=== PATIENT | female | born 1995 | race Caucasian/White ===

== ENCOUNTER 2018-02-04 10:17 | Emergency (ER) | payer SELFPAY ==
--- NOTE | 2018-02-04 10:50 | EDPHYS ---
Physician Documentation [facility] Name: Marion Alvarado Age: 22 yrs Sex: Female : 1995 Arrival Date: 02/04/2018 Time: 10:19 Bed 12 Private MD: None, None ED Physician Andrzej Lei HPI: 02/04 10:41 This 22 yrs old Female presents to ER via Ambulatory with complaints of cp Urinary Problem. 10:41 The patient presents with urinary symptoms, dysuria, frequency. Onset: The cp symptoms/episode began/occurred this morning. Associated signs and symptoms: Pertinent negatives: constipation, fever, flank pain, abdominal pain. Severity of symptoms: in the emergency department the symptoms are unchanged, despite home interventions. 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 - Social history:: Smoking status: Patient/guardian denies using tobacco. ROS: 10:42 Eyes: Negative for injury, pain, redness, and discharge. cp 10:42 Constitutional: Negative for body aches, chills, fever, poor PO intake. 10:42 ENT: Negative for drainage from ear(s), ear pain, sore throat, difficulty swallowing, difficulty handling secretions. 10:42 Cardiovascular: Negative for chest pain, edema, palpitations. 10:42 Respiratory: Negative for cough, shortness of breath, wheezing. 10:42 Abdomen/GI: Negative for abdominal pain, nausea, vomiting, and diarrhea, constipation, anorexia, black/tarry stool, rectal bleeding. 10:42 Back: Negative for pain at rest, pain with movement, radiated pain. 10:42 : Positive for urinary symptoms, urinary frequency, Negative for pelvic pain, flank pain. 10:42 Skin: Negative for cellulitis, rash. 10:42 Neuro: Negative for altered mental status, headache, weakness. 10:42 All other systems are negative. Exam: 10:44 Head/Face: Normocephalic, atraumatic. cp 10:44 Constitutional: The patient appears in no acute distress, alert, awake, non-toxic, well developed, well nourished. 10:44 Eyes: Periorbital structures: appear normal, Conjunctiva: normal, no exudate, no injection, Lids and lashes: appear normal, bilaterally. 10:44 ENT: External ear(s): are unremarkable, Nose: is normal, Mouth: is normal, Posterior pharynx: is normal, airway is patent, no erythema, no exudate. 10:44 Chest/axilla: Inspection: normal. 10:44 Cardiovascular: Rate: normal. 10:44 Respiratory: the patient does not display signs of respiratory distress, Respirations: normal, no use of accessory muscles, no retractions, no splinting, no tachypnea. 10:44 Abdomen/GI: Exam negative for discomfort, distension, guarding, Inspection: abdomen appears normal. 10:44 Back: CVA tenderness, is absent. 10:44 Skin: cellulitis, is not appreciated, no rash present. cp Vital Signs: 10:22 BP 119 / 75; Pulse 74; Resp 19; Temp 97.6(TE); Pulse Ox 100% on R/A; Weight 58.97 kg; la1 Height 4 ft. 10 in. (147.32 cm); 10:22 Body Mass Index 27.17 (58.97 kg, 147.32 cm) la1 MDM: 10:24 Patient medically screened. cp 10:48 Data reviewed: vital signs, nurses notes, lab test result(s), urinalysis, and as a cp result, I will discharge patient. 10:48 Counseling: I had a detailed discussion with the patient and/or guardian regarding: the cp historical points, exam findings, and any diagnostic results supporting the discharge/admit diagnosis, lab results, to return to the emergency department if symptoms worsen or persist or if there are any questions or concerns that arise at home. 02/04 10:35 Order name: Urine Microscopic Only la1 02/04 10:35 Order name: Urine Culture la1 02/04 10:24 Order name: Urine Dipstick-Ancillary (obtain specimen); Complete Time: 10:31 cp 02/04 10:24 Order name: Urine Test (obtain specimen); Complete Time: 10:31 cp 02/04 10:49 Order name: Urine Dipstick--Ancillary (enter results) ag 02/04 10:49 Order name: Urine --Ancillary (enter results) ag Administered Medications: No medications were administered Disposition: 02/04/18 10:49 Discharged to Home. Impression: Urinary tract infection, site not specified. - Condition is Stable. - Discharge Instructions: Urinary Tract Infection. - Prescriptions for Pyridium 200 mg Oral Tablet - take 1 tablet by ORAL route every 8 hours for 3 days; 6 tablet. Bactrim DS 800- 160 mg Oral Tablet - take 1 tablet by ORAL route every 12 hours for 7 days; 14 tablet. - Medication Reconciliation Form, Thank You Letter, Antibiotic Education, Prescription Opioid Use form. - Follow up: Private Physician; When: 2 - 3 days; Reason: symptoms continue. - Problem is new. - Symptoms are unchanged. Addendum: 02/06/2018 08:54 Co-signature as Attending Physician, nAdrzej Lei MD I agree with the assessment and c [place] plan of care. Signatures: Dispatcher [employer] EDAndrzej Pettit MD MD cha Williams, Irene RN RN iw Parish Rice RN RN la1 Andrzej Matt PA PA cp Corrections: (The following items were deleted from the chart) 02/04 10:55 10:49 02/04/2018 10:49 Discharged to Home. Impression: Urinary tract infection, site iw not specified. Condition is Stable. Forms are Medication Reconciliation Form, Thank You Letter, Antibiotic Education, Prescription Opioid Use. Follow up: Private Physician; When: 2 - 3 days; Reason: symptoms continue. Problem is new. Symptoms are unchanged. cp
--- NOTE | 2018-02-04 10:50 | ER ---
Nurse's Notes [facility] Name: Marion Alvarado Age: 22 yrs Sex: Female : 1995 Arrival Date: 02/04/2018 Time: 10:19 Bed 12 Private MD: None, None Diagnosis: Urinary tract infection, site not specified Presentation: 02/04 10:21 Presenting complaint: Patient states: burning with urination since 0300. Transition of la1 care: patient was not received from another setting of care. Onset of symptoms was February 04, 2018. Initial Sepsis Screen: Does the patient meet any 2 criteria? No. Patient's initial sepsis screen is negative. Does the patient have a suspected source of infection? No. Patient's initial sepsis screen is negative. Care prior to arrival: None. 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 - Social history:: Smoking status: Patient/guardian denies using tobacco. Screenin:23 Abuse screen: Denies threats or abuse. Nutritional screening: No deficits noted. la1 Tuberculosis screening: No symptoms or risk factors identified. Fall Risk None identified. Assessment: 10:22 Reassessment: Patient is alert, oriented x 3, equal unlabored respirations, skin la1 warm/dry/pink. General: Appears in no apparent distress. Behavior is calm, cooperative. Pain: Denies pain. : Reports burning with urination, Denies cramping discharge, vaginal bleeding, vaginal itching. Vital Signs: 10:22 BP 119 / 75; Pulse 74; Resp 19; Temp 97.6(TE); Pulse Ox 100% on R/A; Weight 58.97 kg; la1 Height 4 ft. 10 in. (147.32 cm); 10:22 Body Mass Index 27.17 (58.97 kg, 147.32 cm) la1 ED Course: 10:19 Patient arrived in ED. mr 10:20 None, None is Private Physician. mr 10:21 Triage completed. la1 10:22 Arm band placed on left wrist. la1 10:23 Andrzej Matt PA is PHCP. cp 10:23 Andrzej Lei MD is Attending Physician. cp 10:23 Call light in reach. la1 10:34 Parish Rice, RN is Primary Nurse. la1 10:45 Urine collected: clean catch specimen, cloudy, daron colored. jb1 10:55 No provider procedures requiring assistance completed. Patient did not have IV access iw during this emergency room visit. Administered Medications: No medications were administered Outcome: 10:49 Discharge ordered by MD. cp 10:54 Discharged to home ambulatory. iw 10:54 Condition: good 10:54 Discharge instructions given to patient, Instructed on discharge instructions, follow up and referral plans. medication usage, Demonstrated understanding of instructions, follow-up care, medications, Prescriptions given X 2. 10:55 Patient left the ED. iw Signatures: Pablo Del Toro jb1 Jennyfer Lin Irene RN RN iw Parish Rice RN RN la1 Andrzej Matt PA PA cp Corrections: (The following items were deleted from the chart) 10:55 10:20 General: Appears in no apparent distress. comfortable, iw iw
[2018-02-04 10:59] LABS: Urine Blood NEGATIVE (NEG); Urine Glucose TRACE (NEG); Urine Protein 1+ (NEG); Urine Specific Gravity 1.015 (1.005-1.030); Urine pH 7.5 (5.0-7.0)
[2018-02-04 11:00] VITALS: BP 119/75; TEMP 97.6; O2SAT 100
[2018-02-04 11:12] LABS: Urine Amorphous Sediment TRACE /HPF (NONE SEEN); Urine Bacteria <20 /HPF (<20); Urine Culture Reflex Order NOT NEEDED
== END 2018-02-04 10:55 | disposition home or self-care (01) ==
LOC: ER 10:17
DX: N39.0 Urinary tract infection, site not specified (principal)
CPT/HCPCS: 81003; 81015; 81025; 87077; 87086; 87088; 87186; 99283

== ENCOUNTER 2018-12-01 20:28 | Emergency (ER) | payer SELFPAY ==
[2018-12-01 23:32] LABS: Urine Bacteria <20 /HPF (<20); Urine Culture Reflex Order NOT NEEDED; Urine RBC NONE SEEN /HPF (NONE SEEN)
--- NOTE | 2018-12-02 00:18 | ER ---
Nurse's Notes [facility] Name: Marion Alvarado Age: 23 yrs Sex: Female : 1995 Arrival Date: 12/01/2018 Time: 20:31 Bed 8 Private MD: Diagnosis: Dysuria Presentation: 12/01 20:37 Presenting complaint: Patient states: "I think I have a bladder infection.". Transition jd3 of care: patient was not received from another setting of care. Onset of symptoms was November 28, 2018. Risk Assessment: Do you want to hurt yourself or someone else? Patient reports no desire to harm self or others. Initial Sepsis Screen: Does the patient meet any 2 criteria? No. Patient's initial sepsis screen is negative. Does the patient have a suspected source of infection? No. Patient's initial sepsis screen is negative. Care prior to arrival: None. 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 - Social history:: Smoking status: Patient/guardian denies using tobacco. - Ebola Screening: : Patient negative for fever greater than or equal to 101.5 degrees Fahrenheit, and additional compatible Ebola Virus Disease symptoms. Screenin:29 Abuse screen: Denies threats or abuse. Nutritional screening: No deficits noted. jd3 Tuberculosis screening: No symptoms or risk factors identified. Fall Risk Ambulatory Aid- None/Bed Rest/Nurse Assist (0 pts). Gait- Normal/Bed Rest/Wheelchair (0 pts) Mental Status- Oriented to own ability (0 pts). Total Whelan Fall Scale indicates No Risk (0-24 pts). Assessment: 22:28 General: Appears in no apparent distress. uncomfortable, Behavior is calm, cooperative, jd3 appropriate for age. Pain: Complains of pain in groin Quality of pain is described as burning. Neuro: Level of Consciousness is awake, alert, obeys commands, Oriented to person, place, time, situation, Appropriate for age. Cardiovascular: Capillary refill < 3 seconds Patient's skin is warm and dry. Respiratory: Airway is patent Respiratory effort is even, unlabored, Respiratory pattern is regular, symmetrical. GI: No signs and/or symptoms were reported involving the gastrointestinal system. : Reports burning with urination, urgency, urinary frequency. EENT: No signs and/or symptoms were reported regarding the EENT system. Derm: Skin is intact, Skin is dry, Skin is normal, Skin temperature is warm. Musculoskeletal: Circulation, motion, and sensation intact. Range of motion: intact in all extremities. 23:00 Reassessment: Patient appears in no apparent distress at this time. Patient and/or jd3 family updated on plan of care and expected duration. Pain level reassessed. Patient is alert, oriented x 3, equal unlabored respirations, skin warm/dry/pink. awaiting lab results. 12/02 00:08 Reassessment: Patient appears in no apparent distress at this time. Patient and/or jd3 family updated on plan of care and expected duration. Pain level reassessed. Patient is alert, oriented x 3, equal unlabored respirations, skin warm/dry/pink. 00:25 Reassessment: Patient appears in no apparent distress at this time. Patient and/or jd3 family updated on plan of care and expected duration. Pain level reassessed. Patient is alert, oriented x 3, equal unlabored respirations, skin warm/dry/pink. Vital Signs: 12/01 20:39 BP 115 / 78; Pulse 94; Resp 15 S; Temp 98.3(TE); Pulse Ox 99% on R/A; Weight 48.08 kg [facility] (R); Height 4 ft. 10 in. (147.32 cm) (R); Pain 4/10; 22:09 BP 112 / 69; Pulse 78; Resp 16 S; Pulse Ox 100% on R/A; [facility] 23:00 BP 107 / 67; Pulse 81; Resp 15 S; Pulse Ox 100% on R/A; [facility] 12/02 00:08 BP 109 / 65; Pulse 93; Resp 16 S; Pulse Ox 97% on R/A; [facility] 12/01 20:39 Body Mass Index 22.15 (48.08 kg, 147.32 cm) [facility] ED Course: 12/01 20:31 Patient arrived in ED. es 20:38 Triage completed. jd3 20:40 Arm band placed on. jd3 20:42 Rosaura Brooks [facility]-C [facility]. snw 20:42 Marvin Blanchard MD is Attending Physician. snw 21:39 Deanna Ac, RN is Primary Nurse. aj1 22:30 Patient has correct armband on for positive identification. Placed in gown. Bed in low jd3 position. Call light in reach. Side rails up X 1. 03 00:25 No provider procedures requiring assistance completed. Patient did not have IV access jd3 during this emergency room visit. Administered Medications: No medications were administered Outcome: 00:17 Discharge ordered by . snw 00:25 Discharged to home ambulatory. jd3 00:25 Condition: stable 00:25 Discharge instructions given to patient, Instructed on discharge instructions, follow up and referral plans. medication usage, Demonstrated understanding of instructions, follow-up care, medications, Prescriptions given X 2. 00:27 Patient left the ED. jd3 Signatures: Deanna Ac, RN RN aj1 Rosaura Brooks FNP-C FNP-Eliseow Kelsey Sebastian Jonathon, RN RN jd3 Corrections: (The following items were deleted from the chart) 12/01 23:00 23:00 Reassessment: Patient appears in no apparent distress at this time. Patient jd3 and/or family updated on plan of care and expected duration. Pain level reassessed. Patient is alert, oriented x 3, equal unlabored respirations, skin warm/dry/pink. jd3
--- NOTE | 2018-12-02 00:18 | EDPHYS ---
Physician Documentation [facility] Name: Marion Alvarado Age: 23 yrs Sex: Female : 1995 Arrival Date: 12/01/2018 Time: 20:31 Bed 8 Private MD: ED Physician Marvin Blanchard HPI: 12/01 23:21 This 23 yrs old Female presents to ER via Ambulatory with complaints of UTI. snw 23:21 The patient presents with urinary symptoms, dysuria, frequency. Onset: The snw symptoms/episode began/occurred suddenly, 4 day(s) ago, and became persistent. Associated signs and symptoms: Pertinent negatives: fever, vaginal bleeding, vomiting. Severity of symptoms: At their worst the symptoms were moderate. The patient has experienced similar episodes in the past. It is unknown whether or not the patient has recently seen a physician. 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 - Social history:: Smoking status: Patient/guardian denies using tobacco. - Ebola Screening: : Patient negative for fever greater than or equal to 101.5 degrees Fahrenheit, and additional compatible Ebola Virus Disease symptoms. ROS: 23:21 Constitutional: Negative for fever, chills, and weight loss, Eyes: Negative for injury, snw pain, redness, and discharge, ENT: Negative for injury, pain, and discharge, Neck: Negative for injury, pain, and swelling, Cardiovascular: Negative for chest pain, palpitations, and edema, Respiratory: Negative for shortness of breath, cough, wheezing, and pleuritic chest pain, Abdomen/GI: Negative for abdominal pain, nausea, vomiting, diarrhea, and constipation, Back: Negative for injury and pain, MS/Extremity: Negative for injury and deformity, Skin: Negative for injury, rash, and discoloration, Neuro: Negative for headache, weakness, numbness, tingling, and seizure. 23:21 : Positive for urinary symptoms, urinary frequency, burning with urination, Negative for vaginal bleeding, vaginal discharge. Exam: 23:21 Constitutional: This is a well developed, well nourished patient who is awake, alert, snw and in no acute distress. Head/Face: Normocephalic, atraumatic. Eyes: Pupils equal round and reactive to light, extra-ocular motions intact. Lids and lashes normal. Conjunctiva and sclera are non-icteric and not injected. Cornea within normal limits. Periorbital areas with no swelling, redness, or edema. ENT: Nares patent. No nasal discharge, no septal abnormalities noted. Tympanic membranes are normal and external auditory canals are clear. Oropharynx with no redness, swelling, or masses, exudates, or evidence of obstruction, uvula midline. Mucous membranes moist. Neck: Trachea midline, no thyromegaly or masses palpated, and no cervical lymphadenopathy. Supple, full range of motion without nuchal rigidity, or vertebral point tenderness. No Meningismus. Chest/axilla: Normal chest wall appearance and motion. Nontender with no deformity. No lesions are appreciated. Cardiovascular: Regular rate and rhythm with a normal S1 and S2. No gallops, murmurs, or rubs. Normal PMI, no JVD. No pulse deficits. Respiratory: Lungs have equal breath sounds bilaterally, clear to auscultation and percussion. No rales, rhonchi or wheezes noted. No increased work of breathing, no retractions or nasal flaring. Abdomen/GI: Soft, non-tender, with normal bowel sounds. No distension or tympany. No guarding or rebound. No evidence of tenderness throughout. Back: No spinal tenderness. No costovertebral tenderness. Full range of motion. Skin: Warm, dry with normal turgor. Normal color with no rashes, no lesions, and no evidence of cellulitis. MS/ Extremity: Pulses equal, no cyanosis. Neurovascular intact. Full, normal range of motion. Neuro: Awake and alert, GCS 15, oriented to person, place, time, and situation. Cranial nerves II-XII grossly intact. Motor strength 5/5 in all extremities. Sensory grossly intact. Cerebellar exam normal. Normal gait. Psych: Awake, alert, with orientation to person, place and time. Behavior, mood, and affect are within normal limits. Vital Signs: 20:39 BP 115 / 78; Pulse 94; Resp 15 S; Temp 98.3(TE); Pulse Ox 99% on R/A; Weight 48.08 kg jd3 (R); Height 4 ft. 10 in. (147.32 cm) (R); Pain 4/10; 22:09 BP 112 / 69; Pulse 78; Resp 16 S; Pulse Ox 100% on R/A; jd3 23:00 BP 107 / 67; Pulse 81; Resp 15 S; Pulse Ox 100% on R/A; jd3 12/02 00:08 BP 109 / 65; Pulse 93; Resp 16 S; Pulse Ox 97% on R/A; jd3 12/01 20:39 Body Mass Index 22.15 (48.08 kg, 147.32 cm) j MDM: 12/01 22:23 Patient medically screened. snw 12/02 00:19 Data reviewed: vital signs, nurses notes. Data interpreted: Pulse oximetry: on room air snw is 97 %. Interpretation: normal. Counseling: I had a detailed discussion with the patient and/or guardian regarding: the historical points, exam findings, and any diagnostic results supporting the discharge/admit diagnosis, lab results, the need for outpatient follow up, to return to the emergency department if symptoms worsen or persist or if there are any questions or concerns that arise at home. Special discussion: Based on the patient's Hx, exam, and Dx evaluation, there is no indication for emergent surgery or inpatient Tx. It is understood by the patient/guardian that if the Sx's persist or worsen they need to return immediately for re-evaluation. Based on the history and exam findings, there is no indication for further emergent testing or inpatient evaluation. I discussed with the patient/guardian the need to see the OB Gyne specialist for further evaluation of the symptoms. I discussed with the patient/guardian the need to see the primary care provider for further evaluation of the symptoms. 12/01 22:05 Order name: Urine Culture snw 12/01 22:05 Order name: Urine Microscopic Only; Complete Time: 23:35 snw 12/01 22:05 Order name: Urine Test (obtain specimen); Complete Time: 22:23 snw 12/01 22:05 Order name: Urine Dipstick-Ancillary (obtain specimen); Complete Time: 22:23 snw 12/01 22:16 Order name: Urine Dipstick--Ancillary (enter results); Complete Time: 01:58 mw2 12/01 22:16 Order name: Urine --Ancillary (enter results); Complete Time: 01:58 mw2 Administered Medications: No medications were administered Disposition: 03:56 Co-signature as Attending Physician, Marvin Blanchard MD. Disposition: 12/02/18 00:17 Discharged to Home. Impression: Dysuria. - Condition is Stable. - Discharge Instructions: Dysuria, How to Take a Sitz Bath. - Prescriptions for Macrobid 100 mg Oral Capsule - take 1 capsule by ORAL route every 12 hours for 10 days; 20 capsule. Diclofenac Sodium 75 mg Oral Tablet Sustained Release - take 1 tablet by ORAL route 2 times per day; 30 tablet. - Medication Reconciliation Form, Thank You Letter, Antibiotic Education, Prescription Opioid Use form. - Follow up: Private Physician; When: 2 - 3 days; Reason: Recheck today's complaints, Continuance of care, Re-evaluation by your physician. Follow up: Emergency Department; When: As needed; Reason: Worsening of condition. - Notes: Macrobid only to be filled for fever, blood in the urine, worsening symptoms Signatures: Dispatcher [employer] EDMS Rosaura Brooks, SAP TREASURY CONSULTANT-C SAP TREASURY CONSULTANT-Csnw Marvin Blanchard MD MD Hugh Mcconnell RN RN jd3 Corrections: (The following items were deleted from the chart) 00:27 00:17 12/02/2018 00:17 Discharged to Home. Impression: Dysuria. Condition is Stable. jd3 Forms are Medication Reconciliation Form, Thank You Letter, Antibiotic Education, Prescription Opioid Use. Follow up: Private Physician; When: 2 - 3 days; Reason: Recheck today's complaints, Continuance of care, Re-evaluation by your physician. Follow up: Emergency Department; When: As needed; Reason: Worsening of condition. snw
[2018-12-02 00:21] LABS: Urine Blood NEGATIVE (NEG); Urine Glucose NEGATIVE (NEG); Urine Protein NEGATIVE (NEG)
[2018-12-02 01:00] VITALS: TEMP 98.3
[2018-12-02 01:03] VITALS: BP 109/65; O2SAT 97
== END 2018-12-02 00:27 | disposition home or self-care (01) ==
LOC: ER 20:28
DX: R30.0 Dysuria (principal)
CPT/HCPCS: 81003; 81015; 81025; 87086; 87088; 99282

== ENCOUNTER 2019-03-15 01:23 | Emergency (ER) | payer SELFPAY ==
--- NOTE | 2019-03-15 02:01 | ER ---
Nurse's Notes [facility] Name: Marion Alvarado Age: 23 yrs Sex: Female : 1995 Arrival Date: 03/15/2019 Time: 01:27 Bed 5 Private MD: Diagnosis: Urinary tract infection, site not specified;Dysuria Presentation: 03/15 01:43 Presenting complaint: Patient states: burning with urination and increased frequency ak1 since 209903/14/19. pt stated she took OTC AZO at 2230 with no relief. Transition of care: patient was not received from another setting of care. Onset of symptoms was March 15, 2019. Risk Assessment: Do you want to hurt yourself or someone else? Patient reports no desire to harm self or others. Initial Sepsis Screen: Does the patient meet any 2 criteria? No. Patient's initial sepsis screen is negative. Does the patient have a suspected source of infection? No. Patient's initial sepsis screen is negative. Care prior to arrival: None. 01:43 Acuity: SHAW 4 ak1 01:43 Method Of Arrival: Ambulatory ak1 Triage Assessment: 01:45 General: Appears in no apparent distress. Behavior is calm, cooperative. Pain: ak1 Complains of pain in pelvis. EENT: No signs and/or symptoms were reported regarding the EENT system. Neuro: No deficits noted. Cardiovascular: No deficits noted. Respiratory: No deficits noted. GI: No signs and/or symptoms were reported involving the gastrointestinal system. : Reports burning with urination, since 209903/14/19 urinary frequency, since 209903/14/19. Derm: No signs and/or symptoms reported regarding the dermatologic system. Musculoskeletal: No signs and/or symptoms reported regarding the musculoskeletal system. 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 - Social history:: Smoking status: Patient/guardian denies using tobacco. - Ebola Screening: : No symptoms or risks identified at this time. - Family history:: not pertinent. Screenin:47 Abuse screen: Denies threats or abuse. Denies injuries from another. Nutritional ak1 screening: No deficits noted. Tuberculosis screening: No symptoms or risk factors identified. Fall Risk None identified. Assessment: 01:46 Reassessment: Patient appears in no apparent distress at this time. No changes from ak1 previously documented assessment. Patient and/or family updated on plan of care and expected duration. Pain level reassessed. Patient is alert, oriented x 3, equal unlabored respirations, skin warm/dry/pink. see triage assessment. General: Appears in no apparent distress. Vital Signs: 01:43 BP 126 / 95; Pulse 87; Resp 16; Temp 97.6(O); Pulse Ox 98% on R/A; Weight 46.72 kg (R); ak1 Height 4 ft. 10 in. (147.32 cm) (R); Pain 9/10; 02:04 BP 119 / 81; Pulse 81; Resp 16; Temp 97.6; Pulse Ox 100% on R/A; bb 01:43 Body Mass Index 21.53 (46.72 kg, 147.32 cm) ak1 ED Course: 01:27 Patient arrived in ED. ds1 01:28 Andrzej Lei MD is Attending Physician. marilia 01:42 Juany Ann, ARTUR is Primary Nurse. ak1 01:44 Triage completed. ak1 01:45 Arm band placed on Patient placed in an exam room, on a stretcher, Patient notified of ak1 wait time. 01:46 Patient has correct armband on for positive identification. Bed in low position. Call ak1 light in reach. Side rails up X 1. Pulse ox on. NIBP on. 01:46 Urine collected: clean catch specimen. ak1 02:12 No provider procedures requiring assistance completed. Patient did not have IV access ak1 during this emergency room visit. 02:33 Urine Culture Sent. ak1 Administered Medications: 02:05 Drug: Rocephin (cefTRIAXone) 1 grams Route: IM; Site: right gluteus; ak1 02:32 Follow up: Response: No adverse reaction ak1 02:12 Drug: Cipro 500 mg Route: PO; ak1 02:15 Follow up: Response: No adverse reaction; Medication administered at discharge. ak1 02:12 Drug: Pyridium 200 mg Route: PO; ak1 02:15 Follow up: Response: No adverse reaction; Medication administered at discharge. ak1 Outcome: 02:01 Discharge ordered by . marilia 02:13 Condition: good ak1 02:13 Discharge instructions given to patient, Instructed on discharge instructions, follow ak1 up and referral plans. no drinking with medication, no driving heavy equipment, medication usage, safe sex practices, control, Demonstrated understanding of instructions, follow-up care, medications, Prescriptions given X 3. 02:32 Discharged to home ambulatory, with family. ak1 02:33 Patient left the ED. ak1 Addendum: 03/19/2019 08:15 Addendum: Culture Results: Positive urine culture. No further action required. Bacteria s s sensitive to prescribed antibiotic. Signatures: Andrzej Lei MD MD cha Sanford, Demi ds1 Hafsa Weems, Cynthia Arredondo RN, RN RN ss Krenek, Amber, RN RN ak1
--- NOTE | 2019-03-15 02:02 | EDPHYS ---
Physician Documentation [facility] Name: Marion Alvarado Age: 23 yrs Sex: Female : 1995 Arrival Date: 03/15/2019 Time: 01:27 Bed 5 Private MD: ED Physician Andrzej Lei HPI: 03/15 01:58 This 23 yrs old Female presents to ER via Ambulatory with complaints of Pain marilia With Urination. 01:58 The patient presents with urinary symptoms, dysuria, frequency, hematuria. Onset: The marilia symptoms/episode began/occurred 2 day(s) ago. Modifying factors: The symptoms are alleviated by nothing, the symptoms are aggravated by nothing. Associated signs and symptoms: The patient has no apparent associated signs or symptoms. Severity of symptoms: At their worst the symptoms were mild, in the emergency department the symptoms are unchanged. 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 - Social history:: Smoking status: Patient/guardian denies using tobacco. - Ebola Screening: : No symptoms or risks identified at this time. - Family history:: not pertinent. ROS: 01:58 Constitutional: Negative for fever, chills, and weight loss, Eyes: Negative for injury, marilia pain, redness, and discharge, ENT: Negative for injury, pain, and discharge, Neck: Negative for injury, pain, and swelling, Cardiovascular: Negative for chest pain, palpitations, and edema, Respiratory: Negative for shortness of breath, cough, wheezing, and pleuritic chest pain, Back: Negative for injury and pain, : Negative for injury, bleeding, discharge, and swelling, MS/Extremity: Negative for injury and deformity, Skin: Negative for injury, rash, and discoloration, Neuro: Negative for headache, weakness, numbness, tingling, and seizure, Psych: Negative for depression, anxiety, suicide ideation, homicidal ideation, and hallucinations, Allergy/Immunology: Negative for hives, rash, and allergies, Endocrine: Negative for neck swelling, polydipsia, polyuria, polyphagia, and marked weight changes. 01:58 Abdomen/GI: Positive for abdominal pain, of the suprapubic area. Exam: 01:58 Constitutional: This is a well developed, well nourished patient who is awake, alert, marilia and in no acute distress. Head/Face: Normocephalic, atraumatic. Eyes: Pupils equal round and reactive to light, extra-ocular motions intact. Lids and lashes normal. Conjunctiva and sclera are non-icteric and not injected. Cornea within normal limits. Periorbital areas with no swelling, redness, or edema. ENT: Nares patent. No nasal discharge, no septal abnormalities noted. Tympanic membranes are normal and external auditory canals are clear. Oropharynx with no redness, swelling, or masses, exudates, or evidence of obstruction, uvula midline. Mucous membranes moist. Neck: Trachea midline, no thyromegaly or masses palpated, and no cervical lymphadenopathy. Supple, full range of motion without nuchal rigidity, or vertebral point tenderness. No Meningismus. Chest/axilla: Normal chest wall appearance and motion. Nontender with no deformity. No lesions are appreciated. Cardiovascular: Regular rate and rhythm with a normal S1 and S2. No gallops, murmurs, or rubs. Normal PMI, no JVD. No pulse deficits. Respiratory: Lungs have equal breath sounds bilaterally, clear to auscultation and percussion. No rales, rhonchi or wheezes noted. No increased work of breathing, no retractions or nasal flaring. Back: No spinal tenderness. No costovertebral tenderness. Full range of motion. Skin: Warm, dry with normal turgor. Normal color with no rashes, no lesions, and no evidence of cellulitis. MS/ Extremity: Pulses equal, no cyanosis. Neurovascular intact. Full, normal range of motion. Neuro: Awake and alert, GCS 15, oriented to person, place, time, and situation. Cranial nerves II-XII grossly intact. Motor strength 5/5 in all extremities. Sensory grossly intact. Cerebellar exam normal. Normal gait. 01:58 Abdomen/GI: Inspection: abdomen appears normal, Bowel sounds: normal, Palpation: mild abdominal tenderness, in the suprapubic area, Liver: no appreciated palpable abnormalities, Hernia: not appreciated. Vital Signs: 01:43 BP 126 / 95; Pulse 87; Resp 16; Temp 97.6(O); Pulse Ox 98% on R/A; Weight 46.72 kg (R); ak1 Height 4 ft. 10 in. (147.32 cm) (R); Pain 9/10; 02:04 BP 119 / 81; Pulse 81; Resp 16; Temp 97.6; Pulse Ox 100% on R/A; bb 01:43 Body Mass Index 21.53 (46.72 kg, 147.32 cm) [facility] MDM: 01:39 Patient medically screened. [facility] 01:58 Data reviewed: vital signs, nurses notes, lab test result(s), urinalysis. [facility] 03/15 01:39 Order name: Urine Culture [facility] 03/15 01:39 Order name: Urine Dipstick-Ancillary (obtain specimen); Complete Time: 01:43 [facility] 03/15 01:39 Order name: Urine Test (obtain specimen); Complete Time: 01:43 [facility] Administered Medications: 02:05 Drug: Rocephin (cefTRIAXone) 1 grams Route: IM; Site: right gluteus; ak1 02:32 Follow up: Response: No adverse reaction ak1 02:12 Drug: Cipro 500 mg Route: PO; ak1 02:15 Follow up: Response: No adverse reaction; Medication administered at discharge. ak1 02:12 Drug: Pyridium 200 mg Route: PO; ak1 02:15 Follow up: Response: No adverse reaction; Medication administered at discharge. ut1 Disposition: 03/15/19 02:01 Discharged to Home. Impression: Urinary tract infection, site not specified, Dysuria. - Condition is Stable. - Discharge Instructions: Dysuria, Urinary Tract Infection, Adult, Urinary Tract Infection, Adult, [id number]. - Prescriptions for Pyridium 200 mg Oral Tablet - take 1 tablet by ORAL route every 8 hours for 3 days; 9 tablet. Cipro 500 mg Oral Tablet - take 1 tablet by ORAL route every 12 hours for 7 days; 14 tablet. Bactrim DS 800- 160 mg Oral Tablet - take 1 tablet by ORAL route every 12 hours for 3 days; 6 tablet. - Medication Reconciliation Form, Thank You Letter, Antibiotic Education, Prescription Opioid Use form. - Follow up: Private Physician; When: 2 - 3 days; Reason: Recheck today's complaints, Continuance of care, Re-evaluation by your physician. - Problem is new. - Symptoms have improved. Signatures: Dispatcher [employer] EDAndrzej Pettit MD MD cha Krenek, Amber, RN RN ak1 Corrections: (The following items were deleted from the chart) 02:33 02:01 03/15/2019 02:01 Discharged to Home. Impression: Urinary tract infection, site ak1 not specified; Dysuria. Condition is Stable. Forms are Medication Reconciliation Form, Thank You Letter, Antibiotic Education, Prescription Opioid Use. Follow up: Private Physician; When: 2 - 3 days; Reason: Recheck today's complaints, Continuance of care, Re-evaluation by your physician. Problem is new. Symptoms have improved. marilia
[2019-03-15] MEDS ORDERED: CEFTRIAXONE 1000 MG/VIAL ONE (02:22)
[2019-03-15] MEDS ORDERED: PHENAZOPYRIDINE 100MG TAB PO ONE (02:22)
[2019-03-15] MEDS ORDERED: CIPROFLOXACIN HCL 500 MG TAB ONE (02:22)
[2019-03-15] MEDS ORDERED: WATER FOR INJ,STERILE 10 ML ONE (02:23)
[2019-03-15 03:29] VITALS: TEMP 97.6
[2019-03-15 03:32] VITALS: BP 119/81; O2SAT 100
== END 2019-03-15 02:33 | disposition home or self-care (01) ==
LOC: ER 01:23
DX: N39.0 Urinary tract infection, site not specified (principal)
CPT/HCPCS: 87077; 87086; 87088; 87186; 96372; 99284

== ENCOUNTER 2020-04-15 10:35 | Emergency (ER) | payer SELFPAY ==
[2020-04-15 12:42] LABS: Urine Blood NEGATIVE (NEG); Urine Glucose NEGATIVE (NEG); Urine Protein NEGATIVE (NEG); Urine Specific Gravity 1.015 (1.005-1.030)
--- OUTSIDE RECORDS SUMMARY | 2020-04-15 12:56 | XMS REPORT | Continuity of Care Document ---
:1995 Author Organization [facility] t Address [address] [place] [address] Dr. Shetty [address] [place] [id number] Care Team Providers Name Role Phone Unavailable Unavailable Unavailable Problems This patient has no known problems. Allergies, Adverse Reactions, Alerts This patient has no known allergies or adverse reactions. Medications This patient has no known medications. Procedures This patient has no known procedures. Results This patient has no known results.
--- NOTE | 2020-04-15 12:58 | ER ---
Nurse's Notes [facility] Name: Marion Alvarado Age: 24 yrs Sex: Female : 1995 Arrival Date: 04/15/2020 Time: 10:37 Bed 14 Private MD: Diagnosis: Urinary tract infection, site not specified Presentation: 04/15 11:22 Chief complaint: Patient states: Burning with urination, urinary frequency and urgency ca1 at 0800 today. Denies fever. Coronavirus screen: Patient denies a cough. Patient denies shortness of breath or difficulty breathing. Patient denies measured and/or subjective temperature greater than 100.4F prior to today's visit. Patient denies travel on a cruise ship or to a country the [facility] currently lists as an affected area. Patient denies contact with known and/or suspected case of COVID-19. Proceed with normal triage. Ebola Screen: Patient negative for fever greater than or equal to 101.5 degrees Fahrenheit, and additional compatible Ebola Virus Disease symptoms Patient denies exposure to infectious person. Patient denies travel to an Ebola-affected area in the 21 days before illness onset. No symptoms or risks identified at this time. Initial Sepsis Screen: Does the patient meet any 2 criteria? No. Patient's initial sepsis screen is negative. Does the patient have a suspected source of infection? No. Patient's initial sepsis screen is negative. Risk Assessment: Do you want to hurt yourself or someone else? Patient reports no desire to harm self or others. Onset of symptoms was April 15, 2020. 11:22 Method Of Arrival: Ambulatory ca1 11:22 Acuity: SHAW 4 ca1 Triage Assessment: 12:14 General: Appears uncomfortable, Behavior is calm, cooperative. Pain: Complains of pain ks7 in pelvis Pain currently is 8 out of 10 on a pain scale. Quality of pain is described as burning, sharp. 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 - Social history:: Smoking status: Patient denies any tobacco usage or history of. Screenin:15 Abuse screen: Denies threats or abuse. Nutritional screening: No deficits noted. ks7 Tuberculosis screening: No symptoms or risk factors identified. Fall Risk None identified. Assessment: 12:15 General: pt with hx of frequent uti, c/o burning pain with urination, thinks she has a ks7 uti. states Macrobid does not work for her uti.. : Reports burning with urination, pain urgency, urinary frequency. 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 ks7 Vital Signs: 11:22 BP 129 / 91; Pulse 77; Resp 15 S; Temp 97(TE); Pulse Ox 100% on R/A; Weight 46.72 kg ca1 (R); Height 4 ft. 11 in. (149.86 cm) (R); 12:14 Pulse 82; Resp 16; Temp 98.6(TE); Pulse Ox 100% ; Pain 8/10; ks7 13:12 BP 115 / 80; Pulse 80; Resp 16; Temp 98.6(TE); Pulse Ox 100% ; Pain 7/10; ks7 13:25 Temp 98.6(TE); Pulse Ox 100% ; Pain 7/10; ks7 11:22 Body Mass Index 20.80 (46.72 kg, 149.86 cm) ca1 ED Course: 10:37 Patient arrived in ED. ag5 11:01 Claudia Martin F[facility]-C [facility] kb 11:01 Moreno Carson MD is Attending Physician. kb 11:23 Triage completed. ca1 11:24 Arm band placed on right wrist. ca1 12:10 Gertrudis Clay, ARTUR is Primary Nurse. ks7 12:15 Nurse Practitioner and/or Physician Small Engine Technician to see patient. at bedside. ks7 12:15 Patient has correct armband on for positive identification. Bed in low position. Call ks7 light in reach. Side rails up X2. 12:15 No provider procedures requiring assistance completed. Patient did not have IV access ks7 during this emergency room visit. 12:28 No apparent distress. pt ambulated to bathroom independently. ks7 Administered Medications: 13:16 CANCELLED (pt states macrobid does not work for her, has frequent UTI): Macrobid 100 mg ks7 PO once; administer with food 13:21 Drug: Bactrim (160 mg-800 mg (DS) 1 tablet Route: PO; ks7 13:25 Follow up: Temp 98.6 Temporal; Pulse Ox 100% ; Pain 04/04 Adult ks7 Outcome: 12:58 Discharge ordered by . diego 13:26 Discharged to home ambulatory. ks7 13:26 Condition: good 13:26 Discharge instructions given to patient, Instructed on discharge instructions, medication usage, Demonstrated understanding of instructions, medications, Prescriptions given X 1. 13:28 Patient left the ED. ks7 Addendum: 04/19/2020 07:58 Addendum: Culture Results: Positive urine culture. No further action required. Bacteria e b sensitive to prescribed antibiotic. Signatures: Claudia Martin, PUBLIC SAFETY TELECOMMUNICATOR-C PUBLIC SAFETY TELECOMMUNICATOR-Aneta Villarreal Cheryl, RN RN ca1 Armando Carlton 5 Gertrudis Clay RN RN ks7
--- NOTE | 2020-04-15 12:58 | EDPHYS ---
Physician Documentation [facility] Name: Marion Alvarado Age: 24 yrs Sex: Female : 1995 Arrival Date: 04/15/2020 Time: 10:37 Bed 14 Private MD: ED Physician Moreno Carson HPI: 04/15 13:25 This 24 yrs old Female presents to ER via Ambulatory with complaints of kb Possible UTI. 13:25 The patient presents with urinary symptoms, dysuria, frequency, urgency. Onset: The kb symptoms/episode began/occurred this morning. Modifying factors: The symptoms are alleviated by nothing, the symptoms are aggravated by urinating. Associated signs and symptoms: Pertinent positives: dysuria, urinary frequency, Pertinent negatives: fever. Severity of symptoms: At their worst the symptoms were moderate, in the emergency department the symptoms are unchanged. The patient has experienced similar episodes in the past. The patient has not recently seen a physician. 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 - Social history:: Smoking status: Patient denies any tobacco usage or history of. ROS: 13:23 Constitutional: Negative for fever, chills, and weight loss, Cardiovascular: Negative kb for chest pain, palpitations, and edema, Respiratory: Negative for shortness of breath, cough, wheezing, and pleuritic chest pain, Abdomen/GI: Negative for abdominal pain, nausea, vomiting, diarrhea, and constipation, Back: Negative for injury and pain, MS/Extremity: Negative for injury and deformity, Skin: Negative for injury, rash, and discoloration, Neuro: Negative for headache, weakness, numbness, tingling, and seizure. 13:23 : Positive for urinary symptoms, urinary frequency, small amounts, burning with urination. Exam: 13:23 Constitutional: This is a well developed, well nourished patient who is awake, alert, kb and in no acute distress. Head/Face: Normocephalic, atraumatic. Chest/axilla: Normal chest wall appearance and motion. Nontender with no deformity. No lesions are appreciated. Cardiovascular: Regular rate and rhythm with a normal S1 and S2. No gallops, murmurs, or rubs. Normal PMI, no JVD. No pulse deficits. Respiratory: Lungs have equal breath sounds bilaterally, clear to auscultation and percussion. No rales, rhonchi or wheezes noted. No increased work of breathing, no retractions or nasal flaring. Abdomen/GI: Soft, non-tender, with normal bowel sounds. No distension or tympany. No guarding or rebound. No evidence of tenderness throughout. Back: No spinal tenderness. No costovertebral tenderness. Full range of motion. Skin: Warm, dry with normal turgor. Normal color with no rashes, no lesions, and no evidence of cellulitis. MS/ Extremity: Pulses equal, no cyanosis. Neurovascular intact. Full, normal range of motion. Neuro: Awake and alert, GCS 15, oriented to person, place, time, and situation. Cranial nerves II-XII grossly intact. Motor strength 5/5 in all extremities. Sensory grossly intact. Cerebellar exam normal. Normal gait. Vital Signs: 11:22 BP 129 / 91; Pulse 77; Resp 15 S; Temp 97(TE); Pulse Ox 100% on R/A; Weight 46.72 kg ca1 (R); Height 4 ft. 11 in. (149.86 cm) (R); 12:14 Pulse 82; Resp 16; Temp 98.6(TE); Pulse Ox 100% ; Pain 8/10; ks7 13:12 BP 115 / 80; Pulse 80; Resp 16; Temp 98.6(TE); Pulse Ox 100% ; Pain 7/10; ks7 13:25 Temp 98.6(TE); Pulse Ox 100% ; Pain 7/10; ks7 11:22 Body Mass Index 20.80 (46.72 kg, 149.86 cm) ca1 MDM: 12:05 Patient medically screened. kb 13:15 Data reviewed: vital signs, nurses notes. Data interpreted: Pulse oximetry: on room air kb is 100 %. Interpretation: normal. Counseling: I had a detailed discussion with the patient and/or guardian regarding: the historical points, exam findings, and any diagnostic results supporting the discharge/admit diagnosis, lab results, the need for outpatient follow up, a family practitioner, to return to the emergency department if symptoms worsen or persist or if there are any questions or concerns that arise at home. ED course: Pt reports macrobid does not work for her and requests something else. 04/15 11:02 Order name: Urine Microscopic Only kb 04/15 12:29 Order name: Urine Dipstick--Ancillary (enter results); Complete Time: 12:57 aa5 04/15 11:02 Order name: Urine Test (obtain specimen); Complete Time: 12:54 kb 04/15 12:29 Order name: Urine --Ancillary (enter results); Complete Time: 12:57 aa5 04/15 11:02 Order name: Urine Dipstick-Ancillary (obtain specimen); Complete Time: 12:54 kb Administered Medications: 13:16 CANCELLED (pt states macrobid does not work for her, has frequent UTI): Macrobid 100 mg ks7 PO once; administer with food 13:21 Drug: Bactrim (160 mg-800 mg (DS) 1 tablet Route: PO; ks7 13:25 Follow up: Temp 98.6 Temporal; Pulse Ox 100% ; Pain 7/10 Adult ks7 Disposition: 13:29 Co-signature as Attending Physician, Moreno Carson MD. rn Disposition: 04/15/20 12:58 Discharged to Home. Impression: Urinary tract infection, site not specified. - Condition is Stable. - Discharge Instructions: Urinary Tract Infection, Adult, [id number]. - Prescriptions for Bactrim DS 800- 160 mg Oral Tablet - take 1 tablet by ORAL route every 12 hours for 10 days; 20 tablet. - Medication Reconciliation Form, Thank You Letter, Antibiotic Education, Prescription Opioid Use form. - Follow up: Emergency Department; When: As needed; Reason: Worsening of condition. Follow up: Private Physician; When: 2 - 3 days; Reason: Recheck today's complaints, Continuance of care, Re-evaluation by your physician. Signatures: Dispatcher [employer] EDMS Claudia Martin, HEATHER PARKS-Moreno Stephens MD MD rn Acob, Mer RN Gertrudis Coe RN RN ks7 Corrections: (The following items were deleted from the chart) 13:16 12:59 Macrobid 100 mg PO once; administer with food ordered. kb ks7 13:28 12:58 04/15/2020 12:58 Discharged to Home. Impression: Urinary tract infection, site ks7 not specified. Condition is Stable. Forms are Medication Reconciliation Form, Thank You Letter, Antibiotic Education, Prescription Opioid Use. Follow up: Emergency Department; When: As needed; Reason: Worsening of condition. Follow up: Private Physician; When: 2 - 3 days; Reason: Recheck today's complaints, Continuance of care, Re-evaluation by your physician. kb
[2020-04-15] MEDS ORDERED: SMZ./TMP. 800/160 MG TABLET ONE (13:29)
[2020-04-15 15:58] LABS: Urine Bacteria <20 /HPF (<20); Urine RBC <5 /HPF (NONE SEEN)
[2020-04-15 15:59] LABS: Urine Culture Reflex Order REFLEXED
== END 2020-04-15 13:28 | disposition home or self-care (01) ==
LOC: ER 10:35
DX: N39.0 Urinary tract infection, site not specified (principal)
CPT/HCPCS: 81003; 81015; 81025; 87077; 87086; 87088; 87186; 99283

== ENCOUNTER 2020-06-30 19:21 | Emergency (ER) | payer SELFPAY ==
--- NOTE | 2020-06-30 20:32 | ER ---
Nurse's Notes [facility] Name: Marion Alvarado Age: 24 yrs Sex: Female : 1995 Arrival Date: 06/30/2020 Time: 19:24 Bed 20 Private MD: Diagnosis: Urinary tract infection, site not specified Presentation: 06/30 19:28 Chief complaint: Patient states: Painful urination for 1 day. No fever. No N/V/D. ll1 Coronavirus screen: Client denies travel out of the [place] in the last 14 days. At this time, the client does not indicate any symptoms associated with coronavirus-19. Ebola Screen: Patient denies travel to an Ebola-affected area in the 21 days before illness onset. Initial Sepsis Screen: Does the patient meet any 2 criteria? No. Patient's initial sepsis screen is negative. Does the patient have a suspected source of infection? Yes: Dysuria/Frequency/Urgency/UTI. Risk Assessment: Do you want to hurt yourself or someone else? Patient reports no desire to harm self or others. Onset of symptoms was June 30, 2020. 19:28 Method Of Arrival: Ambulatory [facility] 19:28 Acuity: SHAW 4 ll1 Historical: - Allergies: 19:29 No Known Allergies; ll1 - PMHx: 19:29 UTI; ll1 - PSHx: 19:29 None; ll1 - Immunization history:: Flu vaccine is not up to date. - Social history:: Smoking status: Patient denies any tobacco usage or history of. Screenin:14 Abuse screen: Denies threats or abuse. Nutritional screening: No deficits noted. ea Tuberculosis screening: No symptoms or risk factors identified. Fall Risk None identified. Assessment: 20:13 General: Appears in no apparent distress. Behavior is calm, cooperative, appropriate ea for age. Pain: Complains of pain in pelvis Quality of pain is described as burning, burning with urination. Neuro: Level of Consciousness is awake, alert, obeys commands, Oriented to person, place, time. Cardiovascular: Patient's skin is warm and dry. Respiratory: Airway is patent Respiratory effort is even, unlabored, Respiratory pattern is regular, symmetrical. Derm: Skin is pink, warm \T\ dry. 20:38 Reassessment: Patient is alert, oriented x 3, equal unlabored respirations, skin bb warm/dry/pink. pt verbalized understanding of and agrees to plan of care discharge instructions given pt ambulated with steady gait to exit. Vital Signs: 19:28 BP 114 / 78; Pulse 84; Resp 16; Temp 98.1; Pulse Ox 100% ; Weight 46.72 kg; Height 4 ll1 ft. 10 in. (147.32 cm); Pain 0/10; 19:28 Body Mass Index 21.53 (46.72 kg, 147.32 cm) ll1 ED Course: 19:24 Patient arrived in ED. cl3 19:29 Triage completed. ll1 19:29 Arm band placed on Patient placed in an exam room, on a stretcher. 1 19:30 Jair Metz MD is Attending Physician. Cecy 19:44 Moira aHll, RN is Primary Nurse. ea 20:14 Patient has correct armband on for positive identification. Bed in low position. Call ea light in reach. Side rails up X 1. 20:39 No provider procedures requiring assistance completed. Patient did not have IV access bb during this emergency room visit. Administered Medications: No medications were administered Outcome: 20:31 Discharge ordered by . [facility] 20:39 Discharged to home ambulatory. bb 20:39 Condition: stable 20:39 Discharge instructions given to patient, Instructed on discharge instructions, follow up and referral plans. medication usage, Demonstrated understanding of instructions, follow-up care, medications, Prescriptions given X 1. 20:39 Patient left the ED. bb Addendum: 07/04/2020 07:34 Addendum: Culture Results: Positive urine culture. No further action required. Bacteria e b sensitive to prescribed antibiotic. Signatures: Hafsa Weems, RN Moira Clay, RN Antea Dudley ea, Charde 3 Stella Awad RN RN 1 Jair Metz MD MD [facility]
--- NOTE | 2020-06-30 20:32 | EDPHYS ---
Physician Documentation [facility] Name: Marion Alvarado Age: 24 yrs Sex: Female : 1995 Arrival Date: 06/30/2020 Time: 19:24 Bed 20 Private MD: ED Physician Jair Metz HPI: 06/30 20:00 This 24 yrs old Female presents to ER via Ambulatory with complaints of Pain mh7 With Urination. 20:00 The patient presents with urinary symptoms, dysuria, frequency. Onset: The mh7 symptoms/episode began/occurred today. Modifying factors: The symptoms are alleviated by nothing, the symptoms are aggravated by nothing. Associated signs and symptoms: Pertinent negatives: constipation, cramping, diarrhea, dyspareunia, fever, hematuria, nausea, vaginal bleeding, vaginal discharge, vomiting. Severity of symptoms: At their worst the symptoms were moderate, earlier today, in the emergency department the symptoms are unchanged. Historical: - Allergies: 19:29 No Known Allergies; ll1 - PMHx: 19:29 UTI; ll1 - PSHx: 19:29 None; ll1 - Immunization history:: Flu vaccine is not up to date. - Social history:: Smoking status: Patient denies any tobacco usage or history of. ROS: 20:00 Constitutional: Negative for fever, chills, and weight loss, Eyes: Negative for injury, mh7 pain, redness, and discharge, ENT: Negative for injury, pain, and discharge, Neck: Negative for injury, pain, and swelling, Cardiovascular: Negative for chest pain, palpitations, and edema, Respiratory: Negative for shortness of breath, cough, wheezing, and pleuritic chest pain, Abdomen/GI: Negative for abdominal pain, nausea, vomiting, diarrhea, and constipation, Back: Negative for injury and pain, MS/Extremity: Negative for injury and deformity, Skin: Negative for injury, rash, and discoloration, Neuro: Negative for headache, weakness, numbness, tingling, and seizure, Psych: Negative for depression, anxiety, suicide ideation, homicidal ideation, and hallucinations, Allergy/Immunology: Negative for hives, rash, and allergies, Endocrine: Negative for neck swelling, polydipsia, polyuria, polyphagia, and marked weight changes, Hematologic/Lymphatic: Negative for swollen nodes, abnormal bleeding, and unusual bruising. Exam: 20:00 Constitutional: This is a well developed, well nourished patient who is awake, alert, mh7 and in no acute distress. Head/Face: Normocephalic, atraumatic. Eyes: Pupils equal round and reactive to light, extra-ocular motions intact. Lids and lashes normal. Conjunctiva and sclera are non-icteric and not injected. Cornea within normal limits. Periorbital areas with no swelling, redness, or edema. Neck: Trachea midline, no thyromegaly or masses palpated, and no cervical lymphadenopathy. Supple, full range of motion without nuchal rigidity, or vertebral point tenderness. No Meningismus. Chest/axilla: Normal chest wall appearance and motion. Nontender with no deformity. No lesions are appreciated. Cardiovascular: Regular rate and rhythm with a normal S1 and S2. No gallops, murmurs, or rubs. Normal PMI, no JVD. No pulse deficits. Respiratory: Lungs have equal breath sounds bilaterally, clear to auscultation and percussion. No rales, rhonchi or wheezes noted. No increased work of breathing, no retractions or nasal flaring. Abdomen/GI: Soft, non-tender, with normal bowel sounds. No distension or tympany. No guarding or rebound. No evidence of tenderness throughout. Back: No spinal tenderness. No costovertebral tenderness. Full range of motion. Skin: Warm, dry with normal turgor. Normal color with no rashes, no lesions, and no evidence of cellulitis. MS/ Extremity: Pulses equal, no cyanosis. Neurovascular intact. Full, normal range of motion. Neuro: Awake and alert, GCS 15, oriented to person, place, time, and situation. Cranial nerves II-XII grossly intact. Motor strength 5/5 in all extremities. Sensory grossly intact. Cerebellar exam normal. Normal gait. Psych: Awake, alert, with orientation to person, place and time. Behavior, mood, and affect are within normal limits. Vital Signs: 19:28 BP 114 / 78; Pulse 84; Resp 16; Temp 98.1; Pulse Ox 100% ; Weight 46.72 kg; Height 4 ll1 ft. 10 in. (147.32 cm); Pain 0/10; 19:28 Body Mass Index 21.53 (46.72 kg, 147.32 cm) ll1 MDM: 19:51 Patient medically screened. [facility] 20:29 Differential diagnosis: urinary tract infection, Dysuria, Hematuria. Data reviewed: [facility] vital signs, nurses notes, lab test result(s), urinalysis, UPT:. Data interpreted: Pulse oximetry: on room air is 100 %. Interpretation: normal. Counseling: I had a detailed discussion with the patient and/or guardian regarding: the historical points, exam findings, and any diagnostic results supporting the discharge/admit diagnosis, lab results, the need for outpatient follow up, to return to the emergency department if symptoms worsen or persist or if there are any questions or concerns that arise at home. 06/30 20:13 Order name: Urine Culture ea 06/30 20:14 Order name: Urine Culture [facility] 06/30 19:51 Order name: Urine Dipstick-Ancillary (obtain specimen); Complete Time: 20:13 [facility] 06/30 19:51 Order name: Urine Test (obtain specimen); Complete Time: 20:13 [facility] 06/30 20:19 Order name: Urine --Ancillary (enter results) tt3 06/30 20:19 Order name: Urine Dipstick--Ancillary (enter results) tt3 Administered Medications: No medications were administered Disposition: 06/30/20 20:31 Discharged to Home. Impression: Urinary tract infection, site not specified. - Condition is Stable. - Discharge Instructions: Urinary Tract Infection, Adult, [id number]. - Prescriptions for Bactrim DS 800- 160 mg Oral Tablet - take 1 tablet by ORAL route every 12 hours for 7 days; 14 tablet. - Medication Reconciliation Form, Thank You Letter, Antibiotic Education, Prescription Opioid Use form. - Follow up: Private Physician; When: 1 - 2 days; Reason: Worsening of condition, Recheck today's complaints, Continuance of care, Re-evaluation by your physician. - Problem is an acute exacerbation. - Symptoms have improved. Signatures: Dispatcher [employer] EDAL Hafsa Weems RN RN bb Stella Awad RN RN ll1 Jair Metz MD MD 7 Corrections: (The following items were deleted from the chart) 20:39 20:31 06/30/2020 20:31 Discharged to Home. Impression: Urinary tract infection, site bb not specified. Condition is Stable. Forms are Medication Reconciliation Form, Thank You Letter, Antibiotic Education, Prescription Opioid Use. Follow up: Private Physician; When: 1 - 2 days; Reason: Worsening of condition, Recheck today's complaints, Continuance of care, Re-evaluation by your physician. Problem is an acute exacerbation. Symptoms have improved. mh7
[2020-06-30 20:50] LABS: Urine Blood 2+ (NEG); Urine Glucose TRACE (NEG); Urine Protein 2+ (NEG); Urine Specific Gravity 1.015 (1.005-1.030); Urine pH 6.5 (5.0-7.0)
[2020-06-30 21:47] VITALS: BP 114/78; TEMP 98.1; O2SAT 100
--- OUTSIDE RECORDS SUMMARY | 2020-07-03 09:03 | XMS REPORT | Continuity of Care Document ---
:1995 Author Organization [facility] t Address [address] [place] [address] Dr. Shetty [address] [place] [id number] Care Team Providers Name Role Phone Unavailable Unavailable Unavailable Problems This patient has no known problems. Allergies, Adverse Reactions, Alerts This patient has no known allergies or adverse reactions. Medications This patient has no known medications. Procedures This patient has no known procedures. Results This patient has no known results.
== END 2020-06-30 20:39 | disposition home or self-care (01) ==
LOC: ER 19:21
DX: N39.0 Urinary tract infection, site not specified (principal)
CPT/HCPCS: 81003; 81025; 87077; 87086; 87088; 87186; 99282

== ENCOUNTER 2020-07-22 14:11 | Emergency (ER) | payer SELFPAY ==
--- OUTSIDE RECORDS SUMMARY | 2020-07-22 14:13 | XMS REPORT | Continuity of Care Document ---
:1995 Author Organization [facility] t Address [address] [place] [address] Dr. Shetty [address] [place] [id number] Care Team Providers Name Role Phone Unavailable Unavailable Unavailable Problems This patient has no known problems. Allergies, Adverse Reactions, Alerts This patient has no known allergies or adverse reactions. Medications This patient has no known medications. Procedures This patient has no known procedures. Results This patient has no known results.
--- NOTE | 2020-07-22 15:06 | ER ---
Nurse's Notes [facility] Name: Marion Alvarado Age: 24 yrs Sex: Female : 1995 Arrival Date: 07/22/2020 Time: 14:13 Bed 24 Private MD: Diagnosis: Urinary tract infection, site not specified Presentation: 07/22 14:36 Chief complaint: Patient states: Burning with urination, urinary urgency and frequency ca1 since yesterday. Denies fever. Coronavirus screen: Client denies travel out of the [place] in the last 14 days. At this time, the client does not indicate any symptoms associated with coronavirus-19. Ebola Screen: Patient negative for fever greater than or equal to 101.5 degrees Fahrenheit, and additional compatible Ebola Virus Disease symptoms Patient denies exposure to infectious person. Patient denies travel to an Ebola-affected area in the 21 days before illness onset. No symptoms or risks identified at this time. Initial Sepsis Screen: Does the patient meet any 2 criteria? No. Patient's initial sepsis screen is negative. Does the patient have a suspected source of infection? No. Patient's initial sepsis screen is negative. Risk Assessment: Do you want to hurt yourself or someone else? Patient reports no desire to harm self or others. Onset of symptoms was July 22, 2020. 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 It has been more than one year since last vaccine. - Social history:: Smoking status: Patient denies any tobacco usage or history of. Screenin:17 Abuse screen: Denies threats or abuse. Nutritional screening: No deficits noted. jd3 Tuberculosis screening: No symptoms or risk factors identified. Fall Risk Ambulatory Aid- None/Bed Rest/Nurse Assist (0 pts). Gait- Normal/Bed Rest/Wheelchair (0 pts) Mental Status- Oriented to own ability (0 pts). Total Whelan Fall Scale indicates No Risk (0-24 pts). Assessment: 15:16 General: Appears in no apparent distress. comfortable, Behavior is calm, cooperative, jd3 appropriate for age. Pain: Denies pain. Neuro: Level of Consciousness is awake, alert, obeys commands, Oriented to person, place, time, situation. Cardiovascular: Denies chest pain, Capillary refill < 3 seconds Patient's skin is warm and dry. Respiratory: Airway is patent Respiratory effort is even, unlabored, Respiratory pattern is regular, symmetrical, Denies cough, shortness of breath. GI: No signs and/or symptoms were reported involving the gastrointestinal system. : Reports burning with urination, urinary frequency. EENT: No signs and/or symptoms were reported regarding the EENT system. Derm: Skin is intact, Skin is dry, Skin is normal, Skin temperature is warm. Musculoskeletal: Circulation, motion, and sensation intact. Range of motion: intact in all extremities. Vital Signs: 14:36 BP 125 / 85; Pulse 84; Resp 16 S; Temp 97.8(TE); Pulse Ox 95% on R/A; Weight 46.72 kg ca1 (R); Height 4 ft. 10 in. (147.32 cm) (R); Pain 0/10; 14:36 Body Mass Index 21.53 (46.72 kg, 147.32 cm) ca1 ED Course: 14:13 Patient arrived in ED. mr 14:28 [facility]. kb 14:28 Andrzej Lei MD is Attending Physician. kb 14:37 Triage completed. ca1 14:38 Arm band placed on right wrist. ca1 14:54 Urine Microscopic Only Sent. ca1 14:58 Hugh Mcconnell, RN is Primary Nurse. jd3 15:17 No provider procedures requiring assistance completed. Patient did not have IV access jd3 during this emergency room visit. 15:18 Patient has correct armband on for positive identification. Bed in low position. Call jd3 light in reach. Side rails up X 1. Pulse ox on. NIBP on. Administered Medications: 15:11 Drug: Pyridium 200 mg Route: PO; jd3 15:18 Follow up: Response: Medication administered at discharge. jd3 15:11 Drug: Augmentin 875 mg Route: PO; jd3 15:18 Follow up: Response: Medication administered at discharge. jd3 Outcome: 15:05 Discharge ordered by . diego 15:17 Discharged to home ambulatory. jd3 15:17 Condition: stable 15:17 Discharge instructions given to patient, Instructed on discharge instructions, follow up and referral plans. medication usage, Demonstrated understanding of instructions, follow-up care, medications, Prescriptions given X 2. 15:18 Patient left the ED. jd3 Signatures: Claudia Martin, HEATHER PARKS-Farnaz Martinez Jonathon RN RN jd3 Mer Han, RN RN ca1
--- NOTE | 2020-07-22 15:06 | EDPHYS ---
Physician Documentation [facility] Name: Marion Alvarado Age: 24 yrs Sex: Female : 1995 Arrival Date: 07/22/2020 Time: 14:13 Bed 24 Private MD: SCAR Physician Andrzej Lei HPI: 07/22 15:01 This 24 yrs old Female presents to ER via Ambulatory with complaints of kb Urinary Problem. 15:01 The patient presents with urinary symptoms, dysuria, frequency, urgency. Modifying kb factors: The symptoms are alleviated by nothing, the symptoms are aggravated by urinating. Associated signs and symptoms: Pertinent positives: dysuria, urinary frequency, Pertinent negatives: fever. Severity of symptoms: At their worst the symptoms were moderate, in the emergency department the symptoms are unchanged. The patient has not experienced similar symptoms in the past. The patient has not recently seen a physician. 15:02 Onset: The symptoms/episode began/occurred 2 day(s) ago. 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 It has been more than one year since last vaccine. - Social history:: Smoking status: Patient denies any tobacco usage or history of. ROS: 14:59 Constitutional: Negative for fever, chills, and weight loss, Cardiovascular: Negative kb for chest pain, palpitations, and edema, Respiratory: Negative for shortness of breath, cough, wheezing, and pleuritic chest pain, Abdomen/GI: Negative for abdominal pain, nausea, vomiting, diarrhea, and constipation, Back: Negative for injury and pain, MS/Extremity: Negative for injury and deformity, Skin: Negative for injury, rash, and discoloration, Neuro: Negative for headache, weakness, numbness, tingling, and seizure. 14:59 : Positive for urinary symptoms, urinary frequency, small amounts, burning with urination. Exam: 14:59 Constitutional: This is a well developed, well nourished patient who is awake, alert, kb and in no acute distress. Head/Face: Normocephalic, atraumatic. Abdomen/GI: Soft, non-tender, with normal bowel sounds. No distension or tympany. No guarding or rebound. No evidence of tenderness throughout. Skin: Warm, dry with normal turgor. Normal color with no rashes, no lesions, and no evidence of cellulitis. Neuro: Awake and alert, GCS 15, oriented to person, place, time, and situation. Cranial nerves II-XII grossly intact. Motor strength 5/5 in all extremities. Sensory grossly intact. Cerebellar exam normal. Normal gait. Vital Signs: 14:36 BP 125 / 85; Pulse 84; Resp 16 S; Temp 97.8(TE); Pulse Ox 95% on R/A; Weight 46.72 kg ca1 (R); Height 4 ft. 10 in. (147.32 cm) (R); Pain 0/10; 14:36 Body Mass Index 21.53 (46.72 kg, 147.32 cm) ca1 MDM: 14:39 Patient medically screened. [facility] 15:01 Data reviewed: vital signs, nurses notes. Data interpreted: Pulse oximetry: on room air kb is 95 %. Interpretation: normal. 15:04 Counseling: I had a detailed discussion with the patient and/or guardian regarding: the kb historical points, exam findings, and any diagnostic results supporting the discharge/admit diagnosis, lab results, the need for outpatient follow up, a family practitioner, to return to the emergency department if symptoms worsen or persist or if there are any questions or concerns that arise at home. 07/22 14:44 Order name: Urine Microscopic Only kb 07/22 14:44 Order name: Urine Test (obtain specimen); Complete Time: 14:50 kb 07/22 14:44 Order name: Urine Dipstick-Ancillary (obtain specimen); Complete Time: 14:50 kb Administered Medications: 15:11 Drug: Pyridium 200 mg Route: PO; jd3 15:18 Follow up: Response: Medication administered at discharge. jd3 15:11 Drug: Augmentin 875 mg Route: PO; jd3 15:18 Follow up: Response: Medication administered at discharge. jd3 Disposition: 07/23 11:49 Co-signature as Attending Physician, Andrzej Lei MD I agree with the assessment and [facility] plan of care. Disposition: 07/22/20 15:05 Discharged to Home. Impression: Urinary tract infection, site not specified. - Condition is Stable. - Discharge Instructions: Urinary Tract Infection, Adult, [id number]. - Prescriptions for Augmentin 875- 125 mg Oral Tablet - take 1 tablet by ORAL route every 12 hours for 10 days; 20 tablet. Pyridium 200 mg Oral Tablet - take 1 tablet by ORAL route every 8 hours for 3 days; 9 tablet. - Medication Reconciliation Form, Thank You Letter, Antibiotic Education, Prescription Opioid Use form. - Follow up: Emergency Department; When: As needed; Reason: Worsening of condition. Follow up: Private Physician; When: 2 - 3 days; Reason: Recheck today's complaints, Continuance of care, Re-evaluation by your physician. Signatures: Dispatcher [employer] EDClaudia Laguna, GROUP SEGMENT CONSULTANT-C GROUP SEGMENT CONSULTANT-Andrzej Horner MD MD cha Davies, Jonathon, RN RN jd3 Acob, ARTUR Del Angel RN ca1 Corrections: (The following items were deleted from the chart) 07/22 15:01 14:59 Constitutional: This is a well developed, well nourished patient who is awake, kb alert, and in no acute distress. Head/Face: Normocephalic, atraumatic. Abdomen/GI: Soft, non-tender, with normal bowel sounds. No distension or tympany. No guarding or rebound. No evidence of tenderness throughout. Neuro: Awake and alert, GCS 15, oriented to person, place, time, and situation. Cranial nerves II-XII grossly intact. Motor strength 5/5 in all extremities. Sensory grossly intact. Cerebellar exam normal. Normal gait. kb 15:18 15:05 07/22/2020 15:05 Discharged to Home. Impression: Urinary tract infection, site jd3 not specified. Condition is Stable. Forms are Medication Reconciliation Form, Thank You Letter, Antibiotic Education, Prescription Opioid Use. Follow up: Emergency Department; When: As needed; Reason: Worsening of condition. Follow up: Private Physician; When: 2 - 3 days; Reason: Recheck today's complaints, Continuance of care, Re-evaluation by your physician. kb
[2020-07-22] MEDS ORDERED: PHENAZOPYRIDINE 100MG TAB PO ONE (15:21)
[2020-07-22] MEDS ORDERED: AMOX/K CLAV 875 MG TAB ONE (15:22)
[2020-07-22 15:39] LABS: Urine Bacteria 20-50 /HPF (<20); Urine Culture Reflex Order REFLEXED; Urine RBC <5 /HPF (NONE SEEN)
[2020-07-22 15:50] VITALS: BP 125/85; TEMP 97.8; O2SAT 95
== END 2020-07-22 15:18 | disposition home or self-care (01) ==
LOC: ER 14:11
DX: N39.0 Urinary tract infection, site not specified (principal)
CPT/HCPCS: 81015; 87086; 87088; 99284

== ENCOUNTER 2020-08-18 15:09 | Emergency (ER) | payer SELFPAY ==
--- OUTSIDE RECORDS SUMMARY | 2020-08-18 16:05 | XMS REPORT | Summary of Care ---
:1995 Author Organization [facility] - [facility] Address [address] [place] [address] Care Team Providers Name Role Phone Pcp, Does Not Have A Primary Care Provider Reason for Visit Reason Comments DYSURIA Auth/Cert Status Reason Specialty Diagnoses / Referred By Referred To Procedures Contact Contact Emergency Medicine Adc Em ergency Dept [address] [place] [address] Fax: Encounter Details Date Type Department Care Team Description 08/02/2020 Emergency ADC-Emergency Tonya Troncoso PAC Dysuria (Primary Dx); Department 132 [facility] Acute cystitis without hematuria [address] [place], [place] [address] [address] [address] [phone] [place] [id number] [phone] Allergies No Known Allergiesdocumented as of this encounter (statuses as of 08/02/2020) Medications Medication Sig Dispensed Refills Start Date End Date Status sulfamethoxazole-trimetho Take 1 tablet 20 tablet 0 08/02/2020 Active prim 800-160 mg per by mouth every tabletIndications: Acute 12 (twelve) cystitis without hours. hematuria phenazopyridine 200 mg Take 1 tablet 9 tablet 0 08/02/2020 Active tabletIndications: Acute by mouth 3 cystitis without (three) times hematuria daily as needed for Pain. documented as of this encounter (statuses as of 08/02/2020) Active Problems No known active problemsdocumented as of this encounter (statuses as of 08/02/2020) Social History Tobacco Use Types Packs/Day Years Used Date Never Assessed Sex Assigned at Date Recorded Not on file COVID-19 Exposure Response Date Recorded In the last month, have you been in contact with No / Unsure 08/02/2020 3:00 PM [facility] someone who was confirmed or suspected to have Coronavirus / COVID-19? documented as of this encounter Last Filed Vital Signs Vital Sign Reading Time Taken Comments Blood Pressure 121/85 08/02/2020 4:29 PM [facility] Pulse 91 08/02/2020 4:29 PM [facility] Temperature 36.6 C (97.8 F) 08/02/2020 4:29 PM [facility] Respiratory Rate 17 08/02/2020 4:29 PM [facility] Oxygen Saturation 96% 08/02/2020 4:29 PM [facility] Inhaled Oxygen Concentration - - Weight 46.7 kg (103 lb) 08/02/2020 3:02 PM [facility] Height 147.3 cm (4' 10") 08/02/2020 3:01 PM [facility] Body Mass Index 21.53 08/02/2020 3:01 PM [facility] documented in this encounter Discharge Instructions AttachmentsThe following attachments cannot be sent through Care Everywhere. Urinary Tract Infections (UTIs), Understanding (Kuwaiti)documented in this encounter ED Notes Nanette [place] RN - 08/02/2020 3:00 PM CSTPatient states: "I had a UTI and was prescribed amoxicillin and my last dose was yesterday but it's back and it's bad" Reports frequency and dysuria. PMhx: UTI. documented in this encounter Miscellaneous Notes ED Nurse Note - Paola Saldivar RN - 08/02/2020 4:32 PM CSTPA Aba discharged the patient home with prescription and discharge instructions given. Patient left ER vitally stable and ambulatory. No valuables left in ED. [facility] documented in this encounter Plan of Treatment Name Type Priority Associated Diagnoses Date/Ti me URINE CULTURE LAB STAT Dysuria 08/02/2020 3: 08 PM [facility] Name Type Priority Associated Diagnoses Order S chedule URINE CULTURE LAB Routine Dysuria ONCE for 1 Occ urrences starting 08/02/2020 unti l 08/02/2020 Health Maintenance Due Date Last Done Comments VARICELLA VACCINES (1 of 2 - 2-dose 1998 childhood series) MENINGOCOCCAL B VACCINES (1 of 2 - 2007 Risk Bexsero 2-dose series) HPV VACCINES (1 - 2-dose series) 2008 Depression Screening 2009 CHLAMYDIA SCREENING 2013 DTaP,Tdap,and Td Vaccines (1 - 2016 Tdap) PAP SMEAR 2018 INFLUENZA VACCINE (#1) 2020 MENINGOCOCCAL VACCINE Aged Out No longer eligible based on patient's age to complete this topic PNEUMOCOCCAL 0-64 YEARS COMBINED Aged Out No longer eligible based on SERIES patient's age to complete this topic documented as of this encounter Procedures Procedure Name Priority Date/Time Associated Comments Diagnosis POCT TEST SAAD 08/02/2020 3:15 PM Dysuria R esults for this [facility] procedure are i n the results section. URINALYSIS STAT 08/02/2020 3:08 PM Dysuria Results for this [facility] procedure are i n the results section. documented in this encounter Results POCT TEST (08/02/2020 3:15 PM [facility]) Pathologist Sig nature POCT PREG negative On board controls acceptable present with C Line POCT PREG LOT # [id number] POCT PREG TEST DATE 2021-12-24 Specimen Urine - URINE, CLEAN CATCH URINALYSIS (08/02/2020 3:08 PM [facility]) Pathologist Sig nature APPEARANCE Clear Clear [facility] COLOR Yellow Yellow [facility] PH 8.0 4.8 - 8.0 [facility] SP GRAVITY 1.000 (L) 1.003 - 1.030 [facility] GLU U QUAL Normal Normal [facility] BLOOD Negative Negative [facility] KETONES Negative Negative [facility] PROTEIN Negative Negative [facility] UROBILIN Normal Normal [facility] BILIRUBIN Negative Negative [facility] NITRITE Negative Negative [facility] LEUK LUCY 75/uL (A) Negative [facility] RBC/HPF 0 0 - 3 HPF [facility] WBC/HPF 3 0 - 5 HPF [facility] BACTERIA Negative Negative [facility] Specimen Urine - URINE, CLEAN CATCH Performing Organization Address City/State/Zipcode Phone Number [facility] CLIA: [id number] [place] [address] documented in this encounter Visit Diagnoses Diagnosis Dysuria - Primary Acute cystitis without hematuria Acute cystitis documented in this encounter Administered Medications Medication Order MAR Action Action Date Dose Rate Site sulfamethoxazole-trimethoprim Given 08/02/2020 4:24 PM [facility] 1 ta blet (BACTRIM DS) 800-160 mg per tablet 1 tablet 1 tablet, Oral, ONCE, 1 dose, 08/02/20 at 1715, SAAD, Reason for Anti-Infective: Documented Infection, Documented Infection Site: Urine, Duration of Therapy: 10 days documented in this encounter
--- OUTSIDE RECORDS SUMMARY | 2020-08-18 16:05 | XMS REPORT | Continuity of Care Document ---
:1995 Author Organization [facility] t Address [address] [place] [address] Dr. Shetty [address] [place] [address] Care Team Providers Name Role Phone Singer CRUZ Attending Clinician Ju Barfield Attending Clinician Problems This patient has no known problems. Allergies, Adverse Reactions, Alerts This patient has no known allergies or adverse reactions. Medications This patient has no known medications. Procedures This patient has no known procedures. Encounters Start End Encounter Admission Attending Care Care Encounter Source Date/Time Date/Time Type Type Clinicians Facility Department ID 2020-08-12 2020-08-12 Emergency Singer [facility] [[email or web address]] [id number] 10:59:00 12:09:00 Tolu Berrios [id number] [place] [id number] [place] [id number] 2020-08-02 2020-08-02 Emergency Tonya Troncoso [facility] [[email or web address]] [id number] 15:04:00 16:33:00 Ju Berrios [id number] [place] [id number] [place] [id number] Results This patient has no known results.
--- OUTSIDE RECORDS SUMMARY | 2020-08-18 16:06 | XMS REPORT | Summary of Care ---
:1995 Author Organization [facility] - [facility] Address [address] [place], [place] [id number] Care Team Providers Name Role Phone Pcp, Does Not Have A Primary Care Provider Reason for Visit Reason Comments URINARY TRACT INFECTION Auth/Cert Status Reason Specialty Diagnoses / Referred By Referred To Procedures Contact Contact Emergency Medicine Adc Em ergency Dept [address] [place] [phone] Fax: Encounter Details Date Type Department Care Team Description 08/12/2020 Emergency [facility]-Emergency Tolu David DO Dysuria (Primary Dx) Department [address] [place] [address]. [address] [place] [address] [place], [place] [id number] Allergies No Known Allergiesdocumented as of this encounter (statuses as of 08/12/2020) Medications Medication Sig Dispensed Refills Start Date End Date Status sulfamethoxazole-trimet Take 1 tablet 20 tablet 0 08/02/2020 Active hoprim 800-160 mg per by mouth every tabletIndications: 12 (twelve) Acute cystitis without hours. hematuria phenazopyridine 200 mg Take 1 tablet 9 tablet 0 08/02/2020 Active tabletIndications: by mouth 3 Acute cystitis without (three) times hematuria daily as needed for Pain. cephALEXin (KEFLEX) 500 Take 1 capsule 21 capsule 0 08/12/2020 08/19/2020 Active mg capsuleIndications: by mouth 3 Dysuria (three) times daily for 7 days. documented as of this encounter (statuses as of 08/12/2020) Active Problems No known active problemsdocumented as of this encounter (statuses as of 08/12/2020) Social History Tobacco Use Types Packs/Day Years Used Date Never Assessed Sex Assigned at Date Recorded Not on file COVID-19 Exposure Response Date Recorded In the last month, have you been in contact with No / Unsure 08/12/2020 11:04 AM WHEELMAN someone who was confirmed or suspected to have Coronavirus / COVID-19? documented as of this encounter Last Filed Vital Signs Vital Sign Reading Time Taken Comments Blood Pressure 114/97 08/12/2020 11:00 AM WHEELMAN Pulse 89 08/12/2020 11:00 AM WHEELMAN Temperature 36.8 C (98.3 F) 08/12/2020 11:00 AM WHEELMAN Respiratory Rate 18 08/12/2020 11:00 AM WHEELMAN Oxygen Saturation 99% 08/12/2020 11:00 AM WHEELMAN Inhaled Oxygen Concentration - - Weight 46.7 kg (103 lb) 08/12/2020 11:00 AM WHEELMAN Height - - Body Mass Index 21.53 08/02/2020 3:01 PM WHEEL[facility] documented in this encounter Discharge Instructions Tolu Gastelum DO - 08/12/2020 DIAGNOSIS Diagnoses that have been ruled out: None Diagnoses that are still under consideration: None Final diagnoses: Dysuria NO LIFE-THREATENING FINDINGS ON TODAY'S EXAM. PROCEDURES IN THE ER TODAY: Orders Placed This Encounter Procedures URINALYSIS URINE CULTURE MEDICATIONS ADMINISTERED IN THE ER TODAY AND DISCHARGE MEDICATIONS: No orders of the defined types were placed in this encounter. FOLLOW-UP RECOMMENDATIONS: RECOMMEND FOLLOW-UP WITH A PRIMARY CARE PROVIDER OR SPECIALIST IN 2-5 DAYS, ESPECIALLY IF NO IMPROVEMENT IN SYMPTOMS. MAY FOLLOW-UP WITH A PROVIDER OF YOUR CHOICE, SUCH : 1. A PHYSICIAN OF YOUR CHOICE 2. [facility], . LOCATIONS IN [facility] 3. [facility], [address] [place] [address]; [phone] OR, IF YOU WISH TO FOLLOW-UP WITHIN THE [facility], MAY TRY THESE OPTIONS (CLINIC APPOINTMENTS AVAILABLE ON [id number] BASIS): 1. SCHEDULE AN APPOINTMENT ONLINE AT [email or web address] 2. OR CALL THE [facility] AT OR 3. OR CALL YOUR [facility] PHYSICIAN'S OFFICE DIRECTLY IF YOU ARE ALREADY AN ESTABLISHED [facility] PATIENT. RETURN TO ER FOR WORSENING OF SYMPTOMS. AttachmentsThe following attachments cannot be sent through Care Everywhere. Dysuria, Uncertain Cause (Adult) (Kyrgyz)documented in this encounter ED Notes Shahram Rocha RN - 08/12/2020 11:00 AM CSTC/O painful urination x 1 day. LMAN Tolu David DO - 08/12/2020 10:57 AM CST EMERGENCY DEPARTMENT ENCOUNTER [facility] Patient Name: Marion Alvarado Date of : 1995 24 year old Exam Room:[address] Primary Care Physician: PATIENT DOES NOT HAVE A PCP Pre- Hospital Patient Escorted by: Self [9] Mode of Arrival: Personal means [1] EMS Treatment Prior to ED Arrival: Chief Complaint Chief Complaint Patient presents with URINARY TRACT INFECTION HPI 24-year-old female presenting with dysuria, frequency and suprapubic pressure. She was recently treated for UTI with Bactrim and Pyridium. She states that her symptoms improved however over the last 24hours she started having dysuria and pressure again. Concern for lingering UTI. Denies any fever or pelvic pain otherwise. Started taking Azo yesterday. Past Medical History / Immunizations History reviewed. No pertinent past medical history. Tetanus received in last 5 years: Unknown Childhood immunizations: Up-to-date Past Surgical History History reviewed. No pertinent surgical history. Allergies No Known Allergies Social History Substance & Sexual Activity No substance use or sexual activity history on file. Review of Systems Review of Systems Constitutional: Negative for chills, fatigue and fever. HENT: Negative for sore throat. Eyes: Negative for pain. Respiratory: Negative for cough, chest tightness, shortness of breath and stridor. Breasts: Negative for pain. Cardiovascular: Negative for chest pain and palpitations. Gastrointestinal: Negative for abdominal pain, constipation and diarrhea. Genitourinary: Positive for dysuria, urgency and frequency. Negative for bladder incontinence, vaginal discharge and difficulty urinating. Musculoskeletal: Negative for back pain. Skin: Negative for color change and wound. Neurological: Negative for dizziness, seizures, weakness, light-headedness and headaches. Physical Exam BP (!) 114/97 | Pulse 89 | Temp 36.8 C (98.3 F) (Oral) | Resp 18 | Wt 46.7 kg (103 lb) | LMP 07/29/2020 | SpO2 99% | BMI 21.53 kg/m Physical Exam Vitals signs and nursing note reviewed. Constitutional: General: She is not in acute distress. Appearance: She is well-developed. She is not diaphoretic. HENT: Head: Normocephalic and atraumatic. Right Ear: External ear normal. Left Ear: External ear normal. Nose: Nose normal. Eyes: General: No scleral icterus. Conjunctiva/sclera: Conjunctivae normal. Pupils: Pupils are equal, round, and reactive to light. Neck: Musculoskeletal: Normal range of motion and neck supple. Cardiovascular: Rate and Rhythm: Normal rate and regular rhythm. Heart sounds: Normal heart sounds. Pulmonary: Effort: Pulmonary effort is normal. Breath sounds: Normal breath sounds. Abdominal: General: Bowel sounds are normal. Palpations: Abdomen is soft. Tenderness: There is no abdominal tenderness. Musculoskeletal: Normal range of motion. Skin: General: Skin is warm and dry. Neurological: Mental Status: She is alert and oriented to person, place, and time. Cranial Nerves: No cranial nerve deficit. Deep Tendon Reflexes: Reflexes are normal and symmetric. Psychiatric: Behavior: Behavior normal. Thought Content: Thought content normal. Labs Recent Results (from the past 24 hour(s)) URINALYSIS Collection Time: 08/12/20 11:05 AM Result Value Ref Range APPEARANCE Clear Clear COLOR Juany (A) Yellow PH 6.0 4.8 - 8.0 SP GRAVITY 1.003 1.003 - 1.030 GLU U QUAL Normal Normal BLOOD Negative Negative KETONES Negative Negative PROTEIN Negative Negative UROBILIN 4.0 mg/dL (A) Normal BILIRUBIN Negative Negative NITRITE Positive (A) Negative LEUK LUCY Negative Negative RBC/HPF 9 (H) 0 - 3 HPF WBC/HPF <1 0 - 5 HPF BACTERIA Negative Negative SQ EPITH 1 HPF Imaging No results found for this visit on 08/12/20. Orders and Treatments Orders Placed This Encounter Procedures URINALYSIS URINE CULTURE Orders Placed This Encounter Medications cephALEXin (KEFLEX) 500 mg capsule Procedures See ED Procedure Note Notes & MDM Patient was evaluated for an emergency medical condition related to URINARY TRACT INFECTION . Differential diagnoses considered by presenting complaints but not limited to: Dysuria, UTI, bladder spasm, pyelonephritis, and others. ED Course as of Aug 12 1205 Tue Aug 12, 2020 1202 Will treat as she has symptoms and now nitrite positive. [PS] 1202 SQ EPITH: 1 [PS] 1202 WBC/HPF: <1 [PS] 1202 NITRITE(!): Positive [PS] ED Course User Index [PS] Tolu David DO Labs:were ordered, and resulted, any relevant abnormalities were considered. Imaging:Was not ordered IV fluids: not indicated Procedures:were not performed. Assessment: 24-year-old female with dysuria and now positive nitrites on her UA. We'll treat with a course of Keflex being that she's having symptoms. Will send a urine culture and have her contact access Center to establish PCP. Return precautions given his symptoms worsen as documented in the discharge instructions. History, physical exam findings, results of visit, differential diagnosis, medication regimens and plan of future care have been considered. Additional MDM may be found in the ED course. Differential diagnosis considered and final disposition made based on information gathered during evaluation and may not be completely ruled out or specifically listed. Vital signs were rechecked before final disposition and determined to be stable. Diagnosis ICD-10-CM ICD-9-CM 1. Dysuria R30.0 788.1 Disposition & Follow Up ED Disposition ED Disposition Condition Comment Disch - Home Stable Patient's Medications START taking these medications CEPHALEXIN (KEFLEX) 500 MG CAPSULE Take 1 capsule by mouth 3 (three) times daily for 7 days. CONTINUE taking these medications which have NOT CHANGED PHENAZOPYRIDINE 200 MG TABLET Take 1 tablet by mouth 3 (three) times daily as needed for Pain. SULFAMETHOXAZOLE-TRIMETHOPRIM 800-160 MG PER TABLET Take 1 tablet by mouth every 12 (twelve) hours. START taking Modified Medications as Prescribed No medications on file STOP taking these medications No medications on file Contact information for follow-up Pcp, Patient Does Not Have A Relationship: PCP - General [address] [facility] [address] ADC-Emergency Department Specialty: Emergency Medicine [address] [place] [id number] Instructions: If symptoms worsen as documented in the discharge Tolu David DO 08/12/2020 11:04 AM ACTIVE COVID-19 PANDEMIC. documented in this encounter Miscellaneous Notes ED Nurse Note - Shahram Rocha, RN - 08/12/2020 12:07 PM CSTVerbalized understanding of discharge instructions. No signs of distress observed. RR even and unlabored. Encouraged to return to ER if symptoms worsen. LMAN documented in this encounter Plan of Treatment Name Type Priority Associated Diagnoses Order S chedule URINE CULTURE LAB Routine Dysuria ONCE for 1 Occ urrences starting 08/12/2020 unti l 08/12/2020 Health Maintenance Due Date Last Done Comments [...] Procedure Name Priority Date/Time Associated Comments Diagnosis URINALYSIS STAT 08/12/2020 11:05 AM Dysuria Results for this WHEELMAN procedure are i n the results section. CONSENT/REFUSAL FOR Routine 08/12/2020 10:56 AM DIAGNOSIS AND WHEELMAN TREATMENT documented in this encounter Results URINALYSIS (08/12/2020 11:05 AM WHEELMAN) Pathologist Sig nature APPEARANCE Clear Clear [facility] COLOR Juany (A) Yellow [facility] PH 6.0 4.8 - 8.0 [facility] SP GRAVITY 1.003 1.003 - 1.030 [facility] GLU U QUAL Normal Normal [facility] BLOOD Negative Negative [facility] KETONES Negative Negative [facility] PROTEIN Negative Negative [facility] UROBILIN 4.0 mg/dL (A) Normal [facility] BILIRUBIN Negative Negative [facility] NITRITE Positive (A) Negative [facility] LEUK LUCY Negative Negative [facility] RBC/HPF 9 (H) 0 - 3 HPF [facility] WBC/HPF <1 0 - 5 HPF [facility] BACTERIA Negative Negative [facility] SQ EPITH 1 HPF [facility] Specimen Urine - URINE, CLEAN CATCH Performing Organization Address City/State/Zipcode Phone Number [facility] CLIA: [id number] [place] [address] [address] documented in this encounter Visit Diagnoses Diagnosis Dysuria - Primary documented in this encounter Insurance Payer Benefit Plan / Subscriber ID Effective Phone Address T ype Group Dates MEDICAID MEDICAID PENDING 2020-[address] Pending [place] [address] documented as of this encounter"
--- NOTE | 2020-08-18 16:18 | ER ---
Nurse's Notes [facility] Name: Marion Alvarado Age: 24 yrs Sex: Female : 1995 Arrival Date: 08/18/2020 Time: 15:10 Bed 16 Private MD: Diagnosis: Urinary tract infection, site not specified Presentation: 08/18 15:25 Chief complaint: Patient states: burning with urination and frequency since this iw morning. Coronavirus screen: At this time, the client does not indicate any symptoms associated with coronavirus-19. Ebola Screen: Patient negative for fever greater than or equal to 101.5 degrees Fahrenheit, and additional compatible Ebola Virus Disease symptoms Patient denies exposure to infectious person. Patient denies travel to an Ebola-affected area in the 21 days before illness onset. No symptoms or risks identified at this time. Initial Sepsis Screen: Does the patient meet any 2 criteria? No. Patient's initial sepsis screen is negative. Does the patient have a suspected source of infection? No. Patient's initial sepsis screen is negative. Risk Assessment: Do you want to hurt yourself or someone else? Patient reports no desire to harm self or others. Onset of symptoms was August 18, 2020. 15:25 Acuity: SHAW 4 iw 15:25 Method Of Arrival: Ambulatory iw Historical: - Allergies: 15:26 No Known Allergies; iw - Home Meds: 15:26 None [Active]; iw - PMHx: 15:26 UTI; iw - PSHx: 15:26 None; iw - Immunization history:: Adult Immunizations. - Social history:: Smoking status: . Screenin:56 Abuse screen: Denies threats or abuse. Nutritional screening: No deficits noted. tw2 Tuberculosis screening: No symptoms or risk factors identified. Fall Risk None identified. Assessment: 15:23 General: Appears in no apparent distress. slender, well groomed, Behavior is calm, tw2 cooperative, appropriate for age. Neuro: Level of Consciousness is awake, alert, obeys commands, Oriented to person, place, time, situation. Cardiovascular: Patient's skin is warm and dry. Respiratory: Airway is patent Respiratory effort is even, unlabored, Respiratory pattern is regular, symmetrical. GI: No signs and/or symptoms were reported involving the gastrointestinal system. : Urine is urine color is orange, pt states "i took some AZO's" Reports burning with urination, since this morning. EENT: No signs and/or symptoms were reported regarding the EENT system. Derm: No signs and/or symptoms reported regarding the dermatologic system. Musculoskeletal: Range of motion: intact in all extremities. 16:52 Reassessment: Patient appears in no apparent distress at this time. No changes from tw2 previously documented assessment. Patient and/or family updated on plan of care and expected duration. Pain level reassessed. Patient is alert, oriented x 3, equal unlabored respirations, skin warm/dry/pink. 16:57 Reassessment: Patient appears in no apparent distress at this time. No changes from tw2 previously documented assessment. Patient and/or family updated on plan of care and expected duration. Pain level reassessed. Patient is alert, oriented x 3, equal unlabored respirations, skin warm/dry/pink. Vital Signs: 15:31 BP 125 / 61; Pulse 79; Resp 16; Temp 98.8; Pulse Ox 98% ; Weight 46.72 kg; Height 4 ft. iw 10 in. (147.32 cm); 15:49 BP 121 / 87; Pulse 90; Resp 16; Pulse Ox 100% ; mt 16:53 BP 111 / 78; Pulse 91; Resp 17; Pulse Ox 98% on R/A; tw2 15:31 Body Mass Index 21.53 (46.72 kg, 147.32 cm) iw ED Course: 15:10 Patient arrived in ED. ag5 15:23 Bed in low position. Call light in reach. Pulse ox on. NIBP on. tw2 15:26 Triage completed. iw 15:26 Arm band placed on. iw 15:35 Fidelia Feliz, RN is Primary Nurse. tw2 15:57 Rosaura Espana FNP-C is PHCP. snw 15:57 Andrzej Lei MD is Attending Physician. snw 16:36 Awaiting: observation after IM abx prior to discharge. tw2 16:36 Urine Culture Sent. tw2 16:57 No provider procedures requiring assistance completed. Patient did not have IV access tw2 during this emergency room visit. Administered Medications: 16:36 Drug: Rocephin (cefTRIAXone) 1 grams Route: IM; Site: right ventrogluteal; tw2 16:57 Follow up: Response: No adverse reaction tw2 Outcome: 16:17 Discharge ordered by . ramya 16:57 Discharged to home ambulatory. tw2 16:57 Condition: stable 16:57 Discharge instructions given to patient, Instructed on discharge instructions, follow up and referral plans. medication usage, Demonstrated understanding of instructions, follow-up care, medications, Prescriptions given X 1. 16:58 Patient left the ED. tw2 Signatures: Rosaura Espana, RADIO NEWS WRITER-C RADIO NEWS WRITER-Csnw Demetrice Hernandez RN ARTUR iw Fidelia Feliz RN RN tw2 Yessica Carter mt, [facility]
--- NOTE | 2020-08-18 16:18 | EDPHYS ---
Physician Documentation [facility] Name: Marion Alvarado Age: 24 yrs Sex: Female : 1995 Arrival Date: 08/18/2020 Time: 15:10 Bed 16 Private MD: ED Physician Andrzej Lei HPI: 08/18 16:46 This 24 yrs old Female presents to ER via Ambulatory with complaints of snw Urinary Problem. 16:46 Onset: The symptoms/episode began/occurred acutely, this morning. Associated signs and snw symptoms: Pertinent positives: dysuria. The patient has experienced similar episodes in the past. It is unknown whether or not the patient has recently seen a physician. Historical: - Allergies: 15:26 No Known Allergies; iw - Home Meds: 15:26 None [Active]; iw - PMHx: 15:26 UTI; iw - PSHx: 15:26 None; iw - Immunization history:: Adult Immunizations. - Social history:: Smoking status: . ROS: 16:46 Constitutional: Negative for fever, chills, and weight loss, Eyes: Negative for injury, snw pain, redness, and discharge, ENT: Negative for injury, pain, and discharge, Neck: Negative for injury, pain, and swelling, Cardiovascular: Negative for chest pain, palpitations, and edema, Respiratory: Negative for shortness of breath, cough, wheezing, and pleuritic chest pain, Abdomen/GI: Negative for abdominal pain, nausea, vomiting, diarrhea, and constipation, Back: Negative for injury and pain, MS/Extremity: Negative for injury and deformity, Skin: Negative for injury, rash, and discoloration, Neuro: Negative for headache, weakness, numbness, tingling, and seizure, Psych: Negative for depression, anxiety, suicide ideation, homicidal ideation, and hallucinations. 16:46 : Positive for urinary symptoms, burning with urination, Negative for hematuria, pelvic pain, flank pain, bladder incontinence, vaginal discharge. Exam: 16:46 Constitutional: This is a well developed, well nourished patient who is awake, alert, snw and in no acute distress. Head/Face: Normocephalic, atraumatic. Eyes: Pupils equal round and reactive to light, extra-ocular motions intact. Lids and lashes normal. Conjunctiva and sclera are non-icteric and not injected. Cornea within normal limits. Periorbital areas with no swelling, redness, or edema. ENT: Nares patent. No nasal discharge, no septal abnormalities noted. Tympanic membranes are normal and external auditory canals are clear. Oropharynx with no redness, swelling, or masses, exudates, or evidence of obstruction, uvula midline. Mucous membranes moist. Neck: Trachea midline, no thyromegaly or masses palpated, and no cervical lymphadenopathy. Supple, full range of motion without nuchal rigidity, or vertebral point tenderness. No Meningismus. Chest/axilla: Normal chest wall appearance and motion. Nontender with no deformity. No lesions are appreciated. Cardiovascular: Regular rate and rhythm with a normal S1 and S2. No gallops, murmurs, or rubs. Normal PMI, no JVD. No pulse deficits. Respiratory: Lungs have equal breath sounds bilaterally, clear to auscultation and percussion. No rales, rhonchi or wheezes noted. No increased work of breathing, no retractions or nasal flaring. Abdomen/GI: Soft, non-tender, with normal bowel sounds. No distension or tympany. No guarding or rebound. No evidence of tenderness throughout. Back: No spinal tenderness. No costovertebral tenderness. Full range of motion. Skin: Warm, dry with normal turgor. Normal color with no rashes, no lesions, and no evidence of cellulitis. MS/ Extremity: Pulses equal, no cyanosis. Neurovascular intact. Full, normal range of motion. Neuro: Awake and alert, GCS 15, oriented to person, place, time, and situation. Cranial nerves II-XII grossly intact. Motor strength 5/5 in all extremities. Sensory grossly intact. Cerebellar exam normal. Normal gait. Psych: Awake, alert, with orientation to person, place and time. Behavior, mood, and affect are within normal limits. Vital Signs: 15:31 BP 125 / 61; Pulse 79; Resp 16; Temp 98.8; Pulse Ox 98% ; Weight 46.72 kg; Height 4 ft. iw 10 in. (147.32 cm); 15:49 BP 121 / 87; Pulse 90; Resp 16; Pulse Ox 100% ; mt 16:53 BP 111 / 78; Pulse 91; Resp 17; Pulse Ox 98% on R/A; tw2 15:31 Body Mass Index 21.53 (46.72 kg, 147.32 cm) iw MDM: 16:01 Patient medically screened. marilia 16:45 Data reviewed: vital signs, nurses notes. Data interpreted: Pulse oximetry: on room air snw is 100 %. Interpretation: normal. Counseling: I had a detailed discussion with the patient and/or guardian regarding: the historical points, exam findings, and any diagnostic results supporting the discharge/admit diagnosis, lab results, the need for outpatient follow up, for definitive care, to return to the emergency department if symptoms worsen or persist or if there are any questions or concerns that arise at home. Counseling: I had a detailed discussion with the patient and/or guardian regarding: the presence of at least one elevated blood pressure reading (>120/80) during this emergency department visit. Special discussion: I have referred the patient to see his PCP for further evaluation of high blood pressure. Based on the history and exam findings, there is no indication for further emergent testing or inpatient evaluation. I discussed with the patient/guardian the need to see the primary care provider for further evaluation of the symptoms. 08/18 15:43 Order name: Urine Dipstick--Ancillary (enter results); Complete Time: 16:45 bd 08/18 15:43 Order name: Urine --Ancillary (enter results); Complete Time: 16:45 bd 08/18 15:42 Order name: Urine Dipstick-Ancillary (obtain specimen); Complete Time: 15:42 tw2 08/18 15:42 Order name: Urine Test (obtain specimen); Complete Time: 15:42 tw2 08/18 16:17 Order name: Urine Culture snw Administered Medications: 16:36 Drug: Rocephin (cefTRIAXone) 1 grams Route: IM; Site: right ventrogluteal; tw2 16:57 Follow up: Response: No adverse reaction tw2 Disposition: 08/19 09:27 Co-signature as Attending Physician, Andrzej Lei MD I agree with the assessment and [facility] plan of care. Disposition: 08/18/20 16:17 Discharged to Home. Impression: Urinary tract infection, site not specified. - Condition is Stable. - Discharge Instructions: Hypertension, Urinary Tract Infection, Adult, Rehydration, Adult, Form - Blood Pressure Record Sheet. - Prescriptions for Augmentin 875- 125 mg Oral Tablet - take 1 tablet by ORAL route every 12 hours for 10 days; 20 tablet. - Work release form, Medication Reconciliation Form, Thank You Letter, Antibiotic Education, Prescription Opioid Use form. - Follow up: Emergency Department; When: As needed; Reason: Worsening of condition. Follow up: Private Physician; When: 2 - 3 days; Reason: Recheck today's complaints, Continuance of care, Re-evaluation by your physician. Signatures: Dispatcher [employer] EDVT Andrzej Lei MD MD cha Waters, Shelly, KASEY-C AIRPORT SECURITY SCREENER-Demetrice Davis, RN RN iw Fidelia Feliz RN RN tw2 Corrections: (The following items were deleted from the chart) 08/18 16:58 16:17 08/18/2020 16:17 Discharged to Home. Impression: Urinary tract infection, site tw2 not specified. Condition is Stable. Forms are Medication Reconciliation Form, Thank You Letter, Antibiotic Education, Prescription Opioid Use. Follow up: Emergency Department; When: As needed; Reason: Worsening of condition. Follow up: Private Physician; When: 2 - 3 days; Reason: Recheck today's complaints, Continuance of care, Re-evaluation by your physician. snw
[2020-08-18 16:33] LABS: Urine Blood NEGATIVE (NEG); Urine Glucose TRACE (NEG); Urine Protein NEGATIVE (NEG); Urine Specific Gravity <1.005 (1.005-1.030); Urine pH 5.5 (5.0-7.0)
[2020-08-18] MEDS ORDERED: WATER FOR INJ,STERILE 10 ML ONE (16:45)
[2020-08-18] MEDS ORDERED: CEFTRIAXONE 1000 MG/VIAL ONE (16:45)
[2020-08-18 21:32] VITALS: TEMP 98.8
[2020-08-18 21:36] VITALS: BP 111/78; O2SAT 98
== END 2020-08-18 16:58 | disposition home or self-care (01) ==
LOC: ER 15:09
DX: N39.0 Urinary tract infection, site not specified (principal)
CPT/HCPCS: 81003; 81025; 87086; 87088; 96372; 99284

== ENCOUNTER 2020-09-16 14:47 | Emergency (ER) | payer SELFPAY ==
--- OUTSIDE RECORDS SUMMARY | 2020-09-16 14:49 | XMS REPORT | Continuity of Care Document ---
:1995 Author Organization [facility] t Address [address] [place] [address] [address]. [address] [place] [address] Care Team Providers Name Role Phone Singer [...] Facility Department ID 2020-08-12 2020-08-12 Emergency Singer [facility] [id number] 10:59:00 12:09:00 Tolu Berrios [id number] [place] [id number] [place] [id number] 2020-08-02 2020-08-02 Emergency Tonya Troncoso [facility] [id number] 15:04:00 16:33:00 Ju Berrios [id number] [place] [id number] [place] [id number] Results This patient has no known results.
--- NOTE | 2020-09-16 15:06 | EDPHYS ---
Physician Documentation [facility] Name: Marion Alvarado Age: 24 yrs Sex: Female : 1995 Arrival Date: 09/16/2020 Time: 14:49 Bed Waiting Private MD: ED Physician Christian Lorenzo HPI: 09/16 14:58 This 24 yrs old Female presents to ER via Ambulatory with complaints of kb Urinary Frequency. 14:58 The patient presents with urinary symptoms, dysuria, frequency. Onset: The kb symptoms/episode began/occurred yesterday. Modifying factors: The symptoms are alleviated by nothing, the symptoms are aggravated by urinating. Associated signs and symptoms: Pertinent positives: dysuria, urinary frequency. Severity of symptoms: At their worst the symptoms were moderate, in the emergency department the symptoms are unchanged. The patient has experienced similar episodes in the past, a few times. The patient has not recently seen a physician. 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 - Social history:: Smoking status: Patient denies any tobacco usage or history of. ROS: 14:58 Constitutional: Negative for fever, chills, and weight loss, Cardiovascular: Negative kb for chest pain, palpitations, and edema, Respiratory: Negative for shortness of breath, cough, wheezing, and pleuritic chest pain, Abdomen/GI: Negative for abdominal pain, nausea, vomiting, diarrhea, and constipation, MS/Extremity: Negative for injury and deformity, Skin: Negative for injury, rash, and discoloration, Neuro: Negative for headache, weakness, numbness, tingling, and seizure. 14:58 : Positive for urinary symptoms, urinary frequency, burning with urination. Exam: 14:58 Constitutional: This is a well developed, well nourished patient who is awake, alert, kb and in no acute distress. Head/Face: Normocephalic, atraumatic. Chest/axilla: Normal chest wall appearance and motion. Nontender with no deformity. No lesions are appreciated. Cardiovascular: Regular rate and rhythm with a normal S1 and S2. No gallops, murmurs, or rubs. Normal PMI, no JVD. No pulse deficits. Respiratory: Lungs have equal breath sounds bilaterally, clear to auscultation and percussion. No rales, rhonchi or wheezes noted. No increased work of breathing, no retractions or nasal flaring. Abdomen/GI: Soft, non-tender, with normal bowel sounds. No distension or tympany. No guarding or rebound. No evidence of tenderness throughout. Skin: Warm, dry with normal turgor. Normal color with no rashes, no lesions, and no evidence of cellulitis. MS/ Extremity: Pulses equal, no cyanosis. Neurovascular intact. Full, normal range of motion. Neuro: Awake and alert, GCS 15, oriented to person, place, time, and situation. Cranial nerves II-XII grossly intact. Motor strength 5/5 in all extremities. Sensory grossly intact. Cerebellar exam normal. Normal gait. Vital Signs: 14:55 BP 128 / 83; Pulse 79; Resp 16; Temp 97.9; Pulse Ox 97% on R/A; Weight 46.72 kg; Height iw 4 ft. 10 in. (147.32 cm); 14:55 Body Mass Index 21.53 (46.72 kg, 147.32 cm) iw MDM: 14:57 Patient medically screened. kb 14:58 Data reviewed: vital signs, nurses notes. Data interpreted: Pulse oximetry: on room air kb is 97 %. Interpretation: normal. 15:04 Counseling: I had a detailed discussion with the patient and/or guardian regarding: the kb historical points, exam findings, and any diagnostic results supporting the discharge/admit diagnosis, lab results, the need for outpatient follow up, a family practitioner, to return to the emergency department if symptoms worsen or persist or if there are any questions or concerns that arise at home. 09/16 14:57 Order name: Urine Microscopic Only kb 09/16 14:58 Order name: Urine Microscopic Only EDVT 09/16 14:57 Order name: Urine Test (obtain specimen); Complete Time: 15:53 kb 09/16 14:57 Order name: Urine Dipstick-Ancillary (obtain specimen); Complete Time: 15:53 kb Administered Medications: 15:09 Drug: Pyridium 100 mg Route: PO; iw 15:15 Follow up: Response: No adverse reaction iw 15:09 CANCELLED (pt states it doesn't work for her): Macrobid 100 mg PO once; administer with kb food 15:09 Drug: Bactrim (160 mg-800 mg (DS) 1 tablet Route: PO; iw 15:15 Follow up: Response: No adverse reaction iw Disposition: 09/17 06:28 Co-signature as Attending Physician, Christian Lorenzo MD I agree with the assessment and kdr plan of care. Disposition: 09/16/20 15:05 Discharged to Home. Impression: Urinary tract infection, site not specified. - Condition is Stable. - Discharge Instructions: Urinary Tract Infection, Adult, [id number]. - Prescriptions for Pyridium 200 mg Oral Tablet - take 1 tablet by ORAL route every 8 hours for 3 days; 9 tablet. Bactrim DS 800- 160 mg Oral Tablet - take 1 tablet by ORAL route every 12 hours for 7 days; 14 tablet. - Medication Reconciliation Form, Thank You Letter, Antibiotic Education, Prescription Opioid Use form. - Follow up: Emergency Department; When: As needed; Reason: Worsening of condition. Follow up: Private Physician; When: 2 - 3 days; Reason: Recheck today's complaints, Continuance of care, Re-evaluation by your physician. Signatures: Dispatcher [employer] EDMS Claudia Martin, PASTORAL COUNSELOR-C PASTORAL COUNSELOR-Edgarb Christian Lorenzo MD MD kdr Demetrice Hernandez RN RN iw Corrections: (The following items were deleted from the chart) 09/16 15:09 15:05 Macrobid 100 mg PO once; administer with food ordered. kb kb 15:12 15:05 09/16/2020 15:05 Discharged to Home. Impression: Urinary tract infection, site iw not specified. Condition is Stable. Forms are Medication Reconciliation Form, Thank You Letter, Antibiotic Education, Prescription Opioid Use. Follow up: Emergency Department; When: As needed; Reason: Worsening of condition. Follow up: Private Physician; When: 2 - 3 days; Reason: Recheck today's complaints, Continuance of care, Re-evaluation by your physician. kb
--- NOTE | 2020-09-16 15:06 | ER ---
Nurse's Notes [facility] Name: Marion Alvarado Age: 24 yrs Sex: Female : 1995 Arrival Date: 09/16/2020 Time: 14:49 Bed Waiting Private MD: Diagnosis: Urinary tract infection, site not specified Presentation: 09/16 14:55 Chief complaint: Patient states: has urine frequency and burning since yesterday, iw feelslike a UTI. Coronavirus screen: At this time, the client does not indicate any symptoms associated with coronavirus-19. Ebola Screen: Patient negative for fever greater than or equal to 101.5 degrees Fahrenheit, and additional compatible Ebola Virus Disease symptoms Patient denies exposure to infectious person. Patient denies travel to an Ebola-affected area in the 21 days before illness onset. No symptoms or risks identified at this time. Initial Sepsis Screen: Does the patient meet any 2 criteria? No. Patient's initial sepsis screen is negative. Does the patient have a suspected source of infection? No. Patient's initial sepsis screen is negative. Risk Assessment: Do you want to hurt yourself or someone else? Patient reports no desire to harm self or others. Onset of symptoms was September 15, 2020. 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 - Social history:: Smoking status: Patient denies any tobacco usage or history of. Screenin:58 Abuse screen: Denies threats or abuse. Denies injuries from another. Nutritional iw screening: No deficits noted. Tuberculosis screening: No symptoms or risk factors identified. Fall Risk None identified. Assessment: 14:57 General: Appears in no apparent distress. Behavior is calm, cooperative. Pain: Denies iw pain. Neuro: Level of Consciousness is awake, alert, obeys commands, Oriented to person, place, time, situation, Moves all extremities. Full function. Cardiovascular: Patient's skin is warm and dry. Respiratory: Respiratory effort is even, unlabored, Respiratory pattern is regular, symmetrical. : Reports burning with urination, urinary frequency. Derm: Skin is intact, is healthy with good turgor. Musculoskeletal: Range of motion: intact in all extremities. Vital Signs: 14:55 BP 128 / 83; Pulse 79; Resp 16; Temp 97.9; Pulse Ox 97% on R/A; Weight 46.72 kg; Height iw 4 ft. 10 in. (147.32 cm); 14:55 Body Mass Index 21.53 (46.72 kg, 147.32 cm) iw ED Course: 14:49 Patient arrived in ED. rg4 14:50 [facility] kb 14:50 Christian Lorenzo MD is Attending Physician. kb 14:56 Triage completed. iw 15:12 Demetrice Hernandez, RN is Primary Nurse. iw 15:53 Urine Microscopic Only Sent. iw Administered Medications: 15:09 Drug: Pyridium 100 mg Route: PO; iw 15:15 Follow up: Response: No adverse reaction iw 15:09 CANCELLED (pt states it doesn't work for her): Macrobid 100 mg PO once; administer with kb food 15:09 Drug: Bactrim (160 mg-800 mg (DS) 1 tablet Route: PO; iw 15:15 Follow up: Response: No adverse reaction iw Outcome: 15:05 Discharge ordered by . kb 15:12 Patient left the ED. iw Signatures: Claudia Martin FNP-C FNP-Demetrice Retana, RN RN iw Jenna Cevallos rg4
[2020-09-16] MEDS ORDERED: NITROFURAN MACRO 100 MG CAP PO ONE (15:23)
[2020-09-16] MEDS ORDERED: SMZ./TMP. 800/160 MG TABLET ONE (15:24)
[2020-09-16] MEDS ORDERED: PHENAZOPYRIDINE 100MG TAB PO ONE (15:24)
[2020-09-16 16:01] LABS: Urine Bacteria 20-50 /HPF (<20); Urine RBC <5 /HPF (NONE SEEN)
[2020-09-16 16:15] LABS: Urine Blood NEGATIVE (NEG); Urine Glucose NEGATIVE (NEG); Urine Protein NEGATIVE (NEG); Urine Specific Gravity 1.015 (1.005-1.030)
[2020-09-17 08:37] VITALS: BP 128/83; TEMP 97.9; O2SAT 97
== END 2020-09-16 15:12 | disposition home or self-care (01) ==
LOC: ER 14:47
DX: N39.0 Urinary tract infection, site not specified (principal)
CPT/HCPCS: 81003; 81015; 81025; 87086; 87088; 99283

== ENCOUNTER 2021-01-04 12:51 | Emergency (ER) | payer BC ==
--- OUTSIDE RECORDS SUMMARY | 2021-01-04 12:54 | XMS REPORT | Continuity of Care Document ---
:1995 Author Organization [facility] t Address [address] [place] [address] Care Team Providers Name Role Phone Tim PEREZ, Skip Attending Clinician Doctor Unassigned, Name Attending Clinician Unavailable Singer CRUZ Attending Clinician AbaJu Carrasco Attending Clinician Problems This patient has no known problems. Allergies, Adverse Reactions, Alerts This patient has no known allergies or adverse reactions. Medications This patient has no known medications. Procedures This patient has no known procedures. Encounters Start End Encounter Admission Attending Care Care Encounter Source Date/Time Date/Time Type Type Clinicians Facility Department ID 2020-09-24 2020-09-24 Emergency Newton Dumont [facility] [id number] 13:06:00 14:35:00 Skip Berrios [id number] [place] [id number] [place] [id number] 2020-09-24 2020-09-24 Orders Doctor [place] [id number] 00:00:00 00:00:00 Only UnassignedGERALDINE [id number] [facility] [id number] 2020-08-12 2020-08-12 Emergency Singer [facility] [id number] 10:59:00 12:09:00 Tolu Berrios [id number] [place] [id number] [place] [id number] 2020-08-02 2020-08-02 Emergency Tonya Troncoso [facility] [id number] 15:04:00 16:33:00 Ju Berrios [id number] [place] [id number] [place] [id number] Results This patient has no known results.
--- NOTE | 2021-01-04 13:14 | ER ---
Nurse's Notes [facility] Name: Marion Alvarado Age: 25 yrs Sex: Female : 1995 Arrival Date: 01/04/2021 Time: 12:58 Bed 16 Private MD: Diagnosis: Urinary tract infection, site not specified Presentation: 01/04 13:08 Chief complaint: Patient states: Dysuria started today. No fever. No N/V/D. Coronavirus ll1 screen: Client denies travel out of the [place] in the last 14 days. At this time, the client does not indicate any symptoms associated with coronavirus-19. Ebola Screen: Patient denies travel to an Ebola-affected area in the 21 days before illness onset. Initial Sepsis Screen: Does the patient meet any 2 criteria? No. Patient's initial sepsis screen is negative. Does the patient have a suspected source of infection? Yes: Dysuria/Frequency/Urgency/UTI. Risk Assessment: Do you want to hurt yourself or someone else? Patient reports no desire to harm self or others. Onset of symptoms was January 04, 2021. 13:08 Acuity: SHAW 4 ll1 13:08 Method Of Arrival: Ambulatory ll1 Triage Assessment: 13:10 General: Appears in no apparent distress. Behavior is calm, cooperative, appropriate ll1 for age. Pain: Complains of pain in pelvic Quality of pain is described as aching. Neuro: No deficits noted. Cardiovascular: No deficits noted. Respiratory: No deficits noted. : Urine is orange tinged Reports urgency, urinary frequency. 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 - Social history:: Smoking status: Patient denies any tobacco usage or history of. Screenin:09 Abuse screen: Denies threats or abuse. Nutritional screening: No deficits noted. ll1 Tuberculosis screening: No symptoms or risk factors identified. Fall Risk Total Whelan Fall Scale indicates No Risk (0-24 pts). Assessment: 13:40 Reassessment: No changes from previously documented assessment. Patient and/or family ll1 updated on plan of care and expected duration. Pain level reassessed. Vital Signs: 13:08 BP 120 / 67; Pulse 86; Resp 17; Temp 98.9; Pulse Ox 97% ; Weight 46.72 kg; Height 4 ft. ll1 10 in. (147.32 cm); Pain 7/10; 13:08 Body Mass Index 21.53 (46.72 kg, 147.32 cm) ll1 ED Course: 12:58 Patient arrived in ED. mr 13:03 Onel Ruvalcaba, BETH is PHCP. pm1 13:03 Moreno Carson MD is Attending Physician. pm1 13:07 Stella Awad, RN is Primary Nurse. ll1 13:07 Arm band placed on Patient placed in an exam room, on a stretcher. ll1 13:09 Triage completed. ll1 13:10 Patient has correct armband on for positive identification. Bed in low position. Call ll1 light in reach. Side rails up X 1. Cardiac monitoring not applicable on this patient. 13:41 No provider procedures requiring assistance completed. Patient did not have IV access ll1 during this emergency room visit. Administered Medications: 13:24 Drug: Rocephin (cefTRIAXone) 1 grams Route: IM; Site: right gluteus; ll1 13:42 Follow up: Response: No adverse reaction; RASS: Alert and Calm (0) ll1 Outcome: 13:14 Discharge ordered by . pm1 13:41 Discharged to home ambulatory. ll1 13:41 Condition: stable 13:41 Discharge instructions given to patient, Instructed on discharge instructions, follow up and referral plans. medication usage, Demonstrated understanding of instructions, follow-up care, medications, Prescriptions given X 2. 13:43 Patient left the ED. ll1 Signatures: Farnaz Lin mr Onel Ruvalcaba, BETH ELEMENTARY SCHOOL TEACHER'S AIDE pm1 Stella Awad, RN RN ll1
--- NOTE | 2021-01-04 13:15 | EDPHYS ---
Physician Documentation [facility] Name: Marion Alvarado Age: 25 yrs Sex: Female : 1995 Arrival Date: 01/04/2021 Time: 12:58 Bed 16 Private MD: ED Physician Moreno Carson HPI: 01/04 13:10 This 25 yrs old Female presents to ER via Ambulatory with complaints of pm1 Urinary Problem. 13:10 The patient presents with urinary symptoms, dysuria, frequency. Onset: The pm1 symptoms/episode began/occurred today. Modifying factors: The symptoms are alleviated by nothing, the symptoms are aggravated by urinating. Associated signs and symptoms: Pertinent negatives: constipation, cramping, fever, nausea, vomiting. Severity of symptoms: in the emergency department the symptoms are unchanged. The patient has experienced similar episodes in the past, multiple times. The patient has not recently seen a physician. 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 - Social history:: Smoking status: Patient denies any tobacco usage or history of. ROS: 13:10 Positive for urinary frequency, burning with urination, Negative for pelvic pain, pm1 flank pain. 13:10 Constitutional: Negative for fever, chills, and weight loss, Cardiovascular: Negative for chest pain, palpitations, and edema, Respiratory: Negative for shortness of breath, cough, wheezing, and pleuritic chest pain, Abdomen/GI: Negative for abdominal pain, nausea, vomiting, diarrhea, and constipation, Back: Negative for injury and pain, MS/Extremity: Negative for injury and deformity, Skin: Negative for injury, rash, and discoloration. 13:10 Neuro: Negative for headache, weakness, numbness, tingling, and seizure. Exam: 13:10 Constitutional: This is a well developed, well nourished patient who is awake, alert, pm1 and in no acute distress. Head/Face: Normocephalic, atraumatic. 13:10 Back: No spinal tenderness. No costovertebral tenderness. Full range of motion. Skin: Warm, dry with normal turgor. Normal color with no rashes, no lesions, and no evidence of cellulitis. MS/ Extremity: Pulses equal, no cyanosis. Neurovascular intact. Full, normal range of motion. 13:10 Cardiovascular: Exam negative for acute changes, Rate: normal, Rhythm: regular, Pulses: no pulse deficits are appreciated. 13:10 Respiratory: Exam negative for acute changes, respiratory distress, shortness of breath. 13:10 Neuro: Exam negative for acute changes, Orientation: is normal, Mentation: is normal, Motor: moves all fours. Vital Signs: 13:08 BP 120 / 67; Pulse 86; Resp 17; Temp 98.9; Pulse Ox 97% ; Weight 46.72 kg; Height 4 ft. ll1 10 in. (147.32 cm); Pain 7/10; 13:08 Body Mass Index 21.53 (46.72 kg, 147.32 cm) ll1 MDM: 13:03 Patient medically screened. pm1 13:10 Data reviewed: vital signs. Data interpreted: Pulse oximetry: on room air is 97 %. pm1 Interpretation: normal. Counseling: I had a detailed discussion with the patient and/or guardian regarding: the historical points, exam findings, and any diagnostic results supporting the discharge/admit diagnosis, the need for outpatient follow up, a urologist, to return to the emergency department if symptoms worsen or persist or if there are any questions or concerns that arise at home. 01/04 13:15 Order name: Urine Microscopic Only [facility] 01/04 13:15 Order name: Urine Culture [facility] 01/04 13:16 Order name: Urine Microscopic Only [facility] 01/04 13:16 Order name: Urine Culture [facility] 01/04 13:15 Order name: Urine Test (obtain specimen); Complete Time: 13:24 pm1 Administered Medications: 13:24 Drug: Rocephin (cefTRIAXone) 1 grams Route: IM; Site: right gluteus; ll1 13:42 Follow up: Response: No adverse reaction; RASS: Alert and Calm (0) ll1 Disposition: 14:24 Co-signature as Attending Physician, Moreno Carson MD. rn Disposition: 01/04/21 13:14 Discharged to Home. Impression: Urinary tract infection, site not specified. - Condition is Stable. - Discharge Instructions: Urinary Tract Infection, Adult. - Prescriptions for Pyridium 200 mg Oral Tablet - take 1 tablet by ORAL route every 8 hours for 3 days; 9 tablet. Bactrim DS 800- 160 mg Oral Tablet - take 1 tablet by ORAL route every 12 hours for 10 days; 20 tablet. - Medication Reconciliation Form, Thank You Letter, Antibiotic Education, Prescription Opioid Use form. - Follow up: Emergency Department; When: As needed; Reason: Worsening of condition. Follow up: Private Physician; When: 2 - 3 days; Reason: Recheck today's complaints, Continuance of care, Re-evaluation by your physician. - Problem is new. - Symptoms have improved. Signatures: Dispatcher [employer] EDMS Moreno Carson MD MD rn Marinas, Patrick, NP [employer] pm1 Stella Awad RN RN ll1 Corrections: (The following items were deleted from the chart) 13:43 13:14 01/04/2021 13:14 Discharged to Home. Impression: Urinary tract infection, site ll1 not specified. Condition is Stable. Forms are Medication Reconciliation Form, Thank You Letter, Antibiotic Education, Prescription Opioid Use. Follow up: Emergency Department; When: As needed; Reason: Worsening of condition. Follow up: Private Physician; When: 2 - 3 days; Reason: Recheck today's complaints, Continuance of care, Re-evaluation by your physician. Problem is new. Symptoms have improved. pm1
[2021-01-04] MEDS ORDERED: LIDOCAINE 1% MPF 2 ML AMPULE ONE (13:35)
[2021-01-04] MEDS ORDERED: CEFTRIAXONE 1000 MG/VIAL ONE (13:36)
[2021-01-04 13:48] VITALS: BP 120/67; TEMP 98.9; O2SAT 97
[2021-01-04 14:13] LABS: Urine Bacteria <20 /HPF (<20); Urine RBC 20-50 /HPF (NONE SEEN)
== END 2021-01-04 13:43 | disposition home or self-care (01) ==
LOC: ER 12:51
DX: N39.0 Urinary tract infection, site not specified (principal)
CPT/HCPCS: 81015; 87086; 87088; 96372; 99283

== ENCOUNTER 2022-07-31 12:07 | Emergency (ER) | payer BC ==
--- OUTSIDE RECORDS SUMMARY | 2022-07-31 12:11 | XMS REPORT | Continuity of Care Document ---
:1995 Author Organization [facility] t Address [address] [place] [address] Care Team Providers Name Role Phone Newton Dumont MD Attending Clinician Doctor Unassigned, [place] Attending Clinician Unavailable Tolu David DO Attending Clinician TOLU DAVID Attending Clinician Unavailable Tonya Barfield Attending Clinician Payers Payer Name Policy Type Policy Number Effective Date Expiration Date S [facility] MEDICAID PENDING PENDING 2020 00:00:00 [facility] [id number] 2019 00:00:00 Problems This patient has no known problems. Allergies, Adverse Reactions, Alerts Allergy Allergy Status Severity Reaction(s) Onset Inactive Treating Comm ents Source Name Type Date Date Clinician NO KNOWN Drug Active [facility]ER[facility] of [facility] Medications This patient has no known medications. Procedures This patient has no known procedures. Encounters Start End Encounter Admission Attending Care Care Encounter Source Date/Time Date/Time Type Type Clinicians Facility Department ID 2021-10-21 Outpatient [facility] [id number] Common 12:23:29 [id number] [facility] 2020-09-24 2020-09-24 Emergency Newton Dumont NDG[facility] [id number] 13:06:00 14:35:00 [place] [id number] [place] [id number] [place] [id number] 2020-09-24 2020-09-24 Emergency X [facility] ERT [id number] Univers 13:06:00 13:06:00 [facility] 2020-09-24 2020-09-24 Orders Doctor NYLA [id number] 00:00:00 00:00:00 Only Unassigned, [place] [id number] [place] [facility] .[id number] 2020-08-12 2020-08-12 [facility] [id number] 10:59:00 12:09:00 Tolu [place]ina [id number] [place] [id number] [place] [id number] 2020-08-12 2020-08-12 [facility] [id number] Univers 10:59:00 10:59:00 TOLU [facility] 2020-08-02 2020-08-02 Emergency Tonya Troncoso [facility] [id number] 15:04:00 16:33:00 [place] [id number] [place] [id number] [place] [id number] 2020-08-02 2020-08-02 Emergency X [facility] ERT [id number] Univers 14:55:00 14:55:00 [facility] Results This patient has no known results.
[2022-07-31 13:13] LABS: Urine Blood Negative (Negative); Urine Glucose Trace (Negative); Urine Protein Negative (Negative); Urine Specific Gravity <=1.005 (1.005-1.030); Urine pH 6.5 (5.0-7.0)
--- NOTE | 2022-07-31 13:18 | ER ---
Nurse's Notes [facility] [place] Name: Marion Alvarado Age: 26 yrs Sex: Female : 1995 Arrival Date: 07/31/2022 Time: 12:08 Bed 11 Private MD: Diagnosis: UTI/ Urinary tract infection, site not specified Presentation: 07/31 12:48 Chief complaint: Patient states: Pt reports urinary burning, hesitancy, frequency since ss this morning. Denies fever, flank pain. Coronavirus screen: Vaccine status: Patient reports being unvaccinated. Client denies travel out of the [place] in the last 14 days. Ebola Screen: Patient negative for fever greater than or equal to 101.5 degrees Fahrenheit, and additional compatible Ebola Virus Disease symptoms Patient denies exposure to infectious person. Patient denies travel to an Ebola-affected area in the 21 days before illness onset. Initial Sepsis Screen: Does the patient meet any 2 criteria? No. Patient's initial sepsis screen is negative. Does the patient have a suspected source of infection? No. Patient's initial sepsis screen is negative. Risk Assessment: Do you want to hurt yourself or someone else? Patient reports no desire to harm self or others. Onset of symptoms was July 31, 2022 at 08:00. 12:48 Method Of Arrival: Ambulatory ss 12:48 Acuity: SHAW 4 ss Triage Assessment: 12:48 General: Appears in no apparent distress. Behavior is calm, cooperative. Pain: ss Complains of pain in pelvis Pain does not radiate. Pain currently is 7 out of 10 on a pain scale. Quality of pain is described as burning. : Reports burning with urination, pain urgency, urinary frequency. 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 - Social history:: Smoking status: Patient denies any tobacco usage or history of. Screenin:14 Abuse screen: Denies threats or abuse. Nutritional screening: No deficits noted. mb9 Tuberculosis screening: No symptoms or risk factors identified. Fall Risk None identified. Assessment: 13:05 General: Appears in no apparent distress. comfortable, Behavior is calm, cooperative, mb9 appropriate for age. Pain: Complains of pain in pelvis Quality of pain is described as burning, Pain began 1 day ago. Neuro: Level of Consciousness is awake, alert, obeys commands, Oriented to person, place, time, situation, Appropriate for age. Cardiovascular: Heart tones S1 S2 present Rhythm is regular. Respiratory: Airway is patent Respiratory effort is even, unlabored, Respiratory pattern is regular, symmetrical, Breath sounds are clear bilaterally. GI: Abdomen is flat, Bowel sounds present X 4 quads. Abd is soft and non tender X 4 quads. : Urine is clear, Reports burning with urination, urgency, urinary frequency. EENT: No signs and/or symptoms were reported regarding the EENT system. Derm: Skin is pink, warm \T\ dry. Musculoskeletal: Range of motion: intact in all extremities. Vital Signs: 12:48 BP 109 / 73; Pulse 85; Resp 18; Temp 98.5; Pulse Ox 100% ; Weight 47.63 kg; Height 4 ss ft. 10 in. (147.32 cm); Pain 7/10; 13:31 BP 110 / 70; Pulse 82; Resp 16; Pulse Ox 100% on R/A; Pain 0/10; mb9 12:48 Body Mass Index 21.95 (47.63 kg, 147.32 cm) ss ED Course: 12:08 Patient arrived in ED. as 12:28 Rosaura Espana FNP-C is PHCP. snw 12:28 Zac Bagley MD is Attending Physician. snw 12:48 Arm band placed on right wrist. ss 12:50 Triage completed. ss 12:55 Farnaz Cramer, ARTUR is Primary Nurse. mb9 13:05 Placed in gown. Bed in low position. Call light in reach. Side rails up X 1. mb9 13:12 Urine Culture Sent. mb9 13:12 Urine Microscopic Only Sent. mb9 13:14 No provider procedures requiring assistance completed. mb9 13:32 Patient did not have IV access during this emergency room visit. mb9 Administered Medications: 13:31 Drug: Augmentin (Amoxicillin-Clavulanate) 875 mg Route: PO; mb9 13:35 Follow up: Response: No adverse reaction mb9 13:31 Drug: Pyridium (phenazopyridine) 200 mg Route: PO; mb9 13:35 Follow up: Response: No adverse reaction mb9 Medication: 13:14 VIS not applicable for this client. mb9 Outcome: 13:17 Discharge ordered by . ramya 13:32 Discharged to home ambulatory. mb9 13:32 Condition: stable 13:32 Discharge instructions given to patient, Instructed on discharge instructions, follow up and referral plans. Demonstrated understanding of instructions, follow-up care, medications, Prescriptions given X 2. 13:34 Patient left the ED. mb9 Signatures: Rosaura Espana, SHOCHET-C SHOCHET-Csnw Mery Riley Shelby, ARTUR RN Farnaz Goodwin RN RN mb9 Corrections: (The following items were deleted from the chart) 13:03 12:48 BP 109 / 73; Pulse 85bpm; Resp 18bpm; Pulse Ox 100%; Temp 19.5F; 47.63 kg; Height ss 4 ft. 10 in.; BMI: 21.9; Pain 7/10; ss
--- NOTE | 2022-07-31 13:18 | EDPHYS ---
Physician Documentation [facility] Name: Marion Alvarado Age: 26 yrs Sex: Female : 1995 Arrival Date: 07/31/2022 Time: 12:08 Bed 11 Private MD: ED Physician Zac Bagley HPI: 07/31 15:25 This 26 yrs old Female presents to ER via Ambulatory with complaints of Urinary Problem.snw 15:25 The patient presents with urinary symptoms, dysuria, frequency, urgency. Onset: The snw symptoms/episode began/occurred suddenly, this morning. Associated signs and symptoms: The patient has no apparent associated signs or symptoms. Severity of symptoms: At their worst the symptoms were moderate. The patient has experienced a previous episode. The patient has not recently seen a physician. 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 - Social history:: Smoking status: Patient denies any tobacco usage or history of. ROS: 15:25 Constitutional: Negative for fever, chills, and weight loss, Eyes: Negative for injury, snw pain, redness, and discharge, ENT: Negative for injury, pain, and discharge, Neck: Negative for injury, pain, and swelling, Cardiovascular: Negative for chest pain, palpitations, and edema, Respiratory: Negative for shortness of breath, cough, wheezing, and pleuritic chest pain, Abdomen/GI: Negative for abdominal pain, nausea, vomiting, diarrhea, and constipation, Back: Negative for injury and pain, MS/Extremity: Negative for injury and deformity, Skin: Negative for injury, rash, and discoloration, Neuro: Negative for headache, weakness, numbness, tingling, and seizure. 15:25 : Positive for urinary symptoms. Exam: 15:24 Constitutional: This is a well developed, well nourished patient who is awake, alert, snw and in no acute distress. Head/Face: Normocephalic, atraumatic. Eyes: Pupils equal round and reactive to light, extra-ocular motions intact. Lids and lashes normal. Conjunctiva and sclera are non-icteric and not injected. Cornea within normal limits. Periorbital areas with no swelling, redness, or edema. ENT: Nares patent. No nasal discharge, no septal abnormalities noted. Tympanic membranes are normal and external auditory canals are clear. Oropharynx with no redness, swelling, or masses, exudates, or evidence of obstruction, uvula midline. Mucous membranes moist. Neck: Trachea midline, no thyromegaly or masses palpated, and no cervical lymphadenopathy. Supple, full range of motion without nuchal rigidity, or vertebral point tenderness. No Meningismus. Chest/axilla: Normal chest wall appearance and motion. Nontender with no deformity. No lesions are appreciated. Cardiovascular: Regular rate and rhythm with a normal S1 and S2. No gallops, murmurs, or rubs. Normal PMI, no JVD. No pulse deficits. Respiratory: Lungs have equal breath sounds bilaterally, clear to auscultation and percussion. No rales, rhonchi or wheezes noted. No increased work of breathing, no retractions or nasal flaring. Abdomen/GI: Soft, non-tender, with normal bowel sounds. No distension or tympany. No guarding or rebound. No evidence of tenderness throughout. Back: No spinal tenderness. No costovertebral tenderness. Full range of motion. Skin: Warm, dry with normal turgor. Normal color with no rashes, no lesions, and no evidence of cellulitis. MS/ Extremity: Pulses equal, no cyanosis. Neurovascular intact. Full, normal range of motion. Neuro: Awake and alert, GCS 15, oriented to person, place, time, and situation. Cranial nerves II-XII grossly intact. Motor strength 5/5 in all extremities. Sensory grossly intact. Cerebellar exam normal. Normal gait. Psych: Awake, alert, with orientation to person, place and time. Behavior, mood, and affect are within normal limits. Vital Signs: 12:48 BP 109 / 73; Pulse 85; Resp 18; Temp 98.5; Pulse Ox 100% ; Weight 47.63 kg; Height 4 ss ft. 10 in. (147.32 cm); Pain 7/10; 13:31 BP 110 / 70; Pulse 82; Resp 16; Pulse Ox 100% on R/A; Pain 0/10; mb9 12:48 Body Mass Index 21.95 (47.63 kg, 147.32 cm) MDM: 12:51 Patient medically screened. snw 15:24 Data reviewed: vital signs, nurses notes. Data interpreted: Pulse oximetry: on room air snw is 100 %. Interpretation: normal. Counseling: I had a detailed discussion with the patient and/or guardian regarding: the historical points, exam findings, and any diagnostic results supporting the discharge/admit diagnosis, lab results, the need for outpatient follow up, to return to the emergency department if symptoms worsen or persist or if there are any questions or concerns that arise at home. Special discussion: Based on the history and exam findings, there is no indication for further emergent testing or inpatient evaluation. I discussed with the patient/guardian the need to see the primary care provider for further evaluation of the symptoms. 07/31 12:12 Order name: Urine Culture snw 07/31 12:12 Order name: Urine Microscopic Only; Complete Time: 13:25 snw 07/31 12:12 Order name: Urine Dipstick-Ancillary (obtain specimen); Complete Time: 13:12 snw 07/31 13:14 Order name: Urine Dipstick-Ancillary; Complete Time: 13:14 EDMS 07/31 12:12 Order name: Urine Test (obtain specimen); Complete Time: 13:12 snw Administered Medications: 13:31 Drug: Augmentin (Amoxicillin-Clavulanate) 875 mg Route: PO; mb9 13:35 Follow up: Response: No adverse reaction mb9 13:31 Drug: Pyridium (phenazopyridine) 200 mg Route: PO; mb9 13:35 Follow up: Response: No adverse reaction mb9 Disposition Summary: 07/31/22 13:17 Discharge Ordered Location: Home snw Condition: Stable snw Diagnosis - UTI/ Urinary tract infection, site not specified snw Followup: snw - With: Emergency Department - When: As needed - Reason: Worsening of condition Followup: snw - With: Private Physician - When: 2 - 3 days - Reason: Recheck today's complaints, Continuance of care, Re-evaluation by your physician Discharge Instructions: - Discharge Summary Sheet snw - Urinary Tract Infection, Adult snw - Rehydration, Adult snw Forms: - Medication Reconciliation Form snw - Thank You Letter snw - Antibiotic Education snw - Prescription Opioid Use snw - Work release form eb Prescriptions: - Augmentin 875-125 mg Oral Tablet - take 1 tablet by ORAL route every 12 hours for 10 days; 20 tablet; Refills: 0, snw Product Selection Permitted - promethazine 25 mg Oral Tablet - take 1 tablet by ORAL route every 6 hours As needed; 20 tablet; Refills: 0, snw Product Selection Permitted Signatures: Dispatcher [employer] Rosaura Whitlock FNP-C SOURCING CONSULTANT-Csnw Farnaz Cramer, RN RN mb9
[2022-07-31 13:22] LABS: Urine RBC <5 /HPF (None Seen)
[2022-07-31] MEDS ORDERED: AMOX/K CLAV 875 MG TAB ONE (13:30)
[2022-07-31] MEDS ORDERED: PHENAZOPYRIDINE 100MG TAB PO ONE (13:30)
[2022-07-31 13:45] VITALS: TEMP 98.5; O2SAT 100
[2022-07-31 13:46] VITALS: BP 110/70
== END 2022-07-31 13:34 | disposition home or self-care (01) ==
LOC: ER 12:07
DX: N39.0 Urinary tract infection, site not specified (principal)
CPT/HCPCS: 81003; 81015; 87086; 87088; 99283

== ENCOUNTER 2022-11-25 14:17 | Emergency (ER) | payer BC ==
--- OUTSIDE RECORDS SUMMARY | 2022-11-25 14:21 | XMS REPORT | Continuity of Care Document ---
:1995 Author Organization [facility] t Address [address] [facility] [address] [place] [address] Care Team Providers Name Role Phone Newton Dumont MD Attending Clinician Doctor Unassigned, [place] Attending Clinician Unavailable Tolu David DO Attending Clinician TOLU DAVID Attending Clinician Unavailable Tonya Barfield Attending Clinician Payers Payer Name Policy Type Policy Number Effective Date Expiration Date [place] [facility] [place] PEND[place] 2020 00:00:00 [facility] [id number] 2019 00:00:00 Problems This patient has no known problems. Allergies, Adverse Reactions, Alerts Allergy Allergy Status Severity Reaction(s) Onset Inactive Treating Comm ents Source Name Type Date Date Clinician NO KNOWN Drug Active Univers ALLERGIE Class ity of [facility] Medications This patient has no known medications. Procedures This patient has no known procedures. Encounters Start End Encounter Admission Attending Care Care Encounter Source Date/Time Date/Time Type Type Clinicians Facility Department ID 2021-10[facility]21 [facility] [id number] Common 12:23:29 [id number] [facility] 2020-09-24 2020-09-24 Emergency Newton Dumont [facility] [id number] 13:06:00 14:35:00 [place] [id number] [place] [id number] [place] [id number] 2020-09-24 2020-09-24 Emergency X [facility] ERT [id number] Univers 13:06:00 13:06:00 [facility] 2020-09-24 2020-09-24 Orders Doctor NYLA [id number] 00:00:00 00:00:00 Only Unassigned, [place] [id number] [place] [facility] .[id number] 2020-08-12 2020-08-12 [facility] [id number] 10:59:00 12:09:00 Tolu [place] [id number] [place] [id number] [place] [id number] 2020-08-12 2020-08-12 [facility] [id number] Univers 10:59:00 10:59:00 TOLU [facility] 2020-08-02 2020-08-02 Emergency Tonya Troncoso [facility] [id number] 15:04:00 16:33:00 [place] [id number] [place] [id number] [place] [id number] 2020-08-02 2020-08-02 Emergency X [facility] ERT [id number] Univers 14:55:00 14:55:00 [facility] Results This patient has no known results.
[2022-11-25 14:48] LABS: Urine Blood Negative (Negative); Urine Glucose Negative (Negative); Urine Protein Negative (Negative); Urine Specific Gravity 1.015 (1.005-1.030)
[2022-11-25 15:36] LABS: Urine Bacteria <20 /HPF (<20); Urine RBC <5 /HPF (None Seen)
--- NOTE | 2022-11-25 15:42 | EDPHYS ---
Physician Documentation [facility] Name: Marion Alvarado Age: 27 yrs Sex: Female : 1995 Arrival Date: 11/25/2022 Time: 14:21 Bed 15 Private MD: ED Physician Moreno Carson HPI: 11/25 14:34 This 27 yrs old Female presents to ER via Ambulatory with complaints of Urinary Problem.kb 14:34 This 27 yrs old Female presents to ER via Ambulatory with complaints of Urinary Problem.kb 14:34 The patient presents with urinary symptoms, frequency, urgency. Onset: The kb symptoms/episode began/occurred 3 day(s) ago. Modifying factors: The symptoms are alleviated by nothing, the symptoms are aggravated by nothing. Associated signs and symptoms: Pertinent positives: urinary frequency, Pertinent negatives: dysuria, fever. Severity of symptoms: At their worst the symptoms were mild, in the emergency department the symptoms are unchanged. The patient has not experienced similar symptoms in the past. The patient has not recently seen a physician. Historical: - Allergies: 14:23 No Known Allergies; aa5 - PMHx: 14:23 UTI; aa5 - PSHx: 14:23 None; aa5 - Immunization history:: Adult Immunizations unknown. - Social history:: Smoking status: Patient denies any tobacco usage or history of. ROS: 14:32 Constitutional: Negative for fever, chills, and weight loss. kb 14:32 : Positive for urinary symptoms, urinary frequency, Urgency. 14:32 All other systems are negative. Exam: 14:32 Constitutional: This is a well developed, well nourished patient who is awake, alert, kb and in no acute distress. Head/Face: Normocephalic, atraumatic. ENT: Moist Mucous membranes Cardiovascular: Regular rate and rhythm with a normal S1 and S2. No gallops, murmurs, or rubs. No pulse deficits. Respiratory: Respirations even and unlabored. No increased work of breathing. Talking in full sentences Abdomen/GI: Soft, non-tender. No distention Back: No spinal tenderness. No costovertebral tenderness. Full range of motion. Skin: Warm, dry with normal turgor. Normal color. MS/ Extremity: Pulses equal, no cyanosis. Neurovascular intact. Full, normal range of motion. Neuro: Awake and alert, GCS 15, oriented to person, place, time, and situation. Moves all extremities. Normal gait. Vital Signs: 14:23 BP 120 / 79; Pulse 64; Resp 16 S; Temp 99.0(TE); Pulse Ox 100% on R/A; Weight 46.72 kg aa5 (R); Height 4 ft. 10 in. (147.32 cm) (R); 15:06 BP 116 / 74; Pulse 69; Resp 18; Pulse Ox 100% on R/A; ld1 16:28 BP 121 / 78; Pulse 71; Resp 18; Pulse Ox 100% on R/A; ld1 14:23 Body Mass Index 21.53 (46.72 kg, 147.32 cm) aa5 MDM: 14:23 Patient medically screened. kb 14:33 Differential diagnosis: UTI, Urinary frequency. Data reviewed: vital signs, nurses kb notes. ED course: Patient is a 27-year-old female who presents for urinary frequency and urgency for 3 days. Denies any dysuria, fever, abdominal pain, flank pain. On exam patient has no tenderness to abdomen, no CVA tenderness, nontoxic in appearance. Urinalysis with micro ordered.. 15:39 Differential diagnosis: urinary tract infection, frequency. Counseling: I had a kb detailed discussion with the patient and/or guardian regarding: the historical points, exam findings, and any diagnostic results supporting the discharge/admit diagnosis, lab results, the need for outpatient follow up, a family practitioner, to return to the emergency department if symptoms worsen or persist or if there are any questions or concerns that arise at home. 11/25 14:28 Order name: Urine Microscopic Only; Complete Time: 15:39 kb 11/25 14:28 Order name: Urine Dipstick-Ancillary (obtain specimen); Complete Time: 14:49 kb 11/25 14:28 Order name: Urine Test (obtain specimen); Complete Time: 14:49 kb 11/25 14:49 Order name: Urine Dipstick-Ancillary; Complete Time: 14:49 EDMS 11/25 14:57 Order name: Urine --Ancillary (enter results) kj1 Administered Medications: No medications were administered Disposition: 19:25 Co-signature as Attending Physician, Moreno Carson MD I reviewed the patient's care rn provided by the Advanced Practice Provider and agree with the diagnosis and treatment plan. Disposition Summary: 11/25/22 15:42 Discharge Ordered Location: Home kb Condition: Stable kb Diagnosis - UTI/ Urinary tract infection, site not specified kb Followup: kb - With: Emergency Department - When: As needed - Reason: Worsening of condition Followup: kb - With: Private Physician - When: 2 - 3 days - Reason: Recheck today's complaints, Continuance of care, Re-evaluation by your physician Discharge Instructions: - Discharge Summary Sheet kb - Urinary Tract Infection, Adult, [id number] kb Forms: - Medication Reconciliation Form kb - Thank You Letter kb - Antibiotic Education kb - Prescription Opioid Use kb Prescriptions: - Macrobid 100 mg Oral Capsule - take 1 capsule by ORAL route every 12 hours for 10 days; 20 capsule; Refills: kb 0, Product Selection Permitted Signatures: Dispatcher [employer] Claudia Glass, KASEY-C LINING SETTER-Moreno Stephens MD MD rn Calderon, Audri, RN RN aa5
--- NOTE | 2022-11-25 15:42 | ER ---
Nurse's Notes [facility] Name: Marion Alvarado Age: 27 yrs Sex: Female : 1995 Arrival Date: 11/25/2022 Time: 14:21 Bed 15 Private MD: Diagnosis: UTI/ Urinary tract infection, site not specified Presentation: 11/25 14:23 Chief complaint: Patient states: "I just have a lot of pressure down there and I think aa5 I have a UTI". Coronavirus screen: At this time, the client does not indicate any symptoms associated with coronavirus-19. Ebola Screen: Patient denies travel to an Ebola-affected area in the 21 days before illness onset. Initial Sepsis Screen: Does the patient meet any 2 criteria? No. Patient's initial sepsis screen is negative. Does the patient have a suspected source of infection? No. Patient's initial sepsis screen is negative. Risk Assessment: Do you want to hurt yourself or someone else? Patient reports no desire to harm self or others. Onset of symptoms was October 2022. 14:23 Acuity: SHAW 4 aa5 14:23 Method Of Arrival: Ambulatory aa5 Historical: - Allergies: 14:23 No Known Allergies; aa5 - PMHx: 14:23 UTI; aa5 - PSHx: 14:23 None; aa5 - Immunization history:: Adult Immunizations unknown. - Social history:: Smoking status: Patient denies any tobacco usage or history of. Screenin:06 [facility] ED Fall Risk Assessment (Adult) History of falling in the last 3 months, ld1 including since admission No falls in past 3 months (0 pts). Abuse screen: Denies threats or abuse. Denies injuries from another. Nutritional screening: No deficits noted. Tuberculosis screening: No symptoms or risk factors identified. Assessment: 15:06 General: Appears in no apparent distress. comfortable, Behavior is calm, cooperative, ld1 appropriate for age. Pain: Denies pain. Neuro: Level of Consciousness is awake, alert, obeys commands, Oriented to person, place, time, situation. Cardiovascular: Capillary refill < 3 seconds Patient's skin is warm and dry. Respiratory: Airway is patent Respiratory effort is even, unlabored. GI: Abdomen is flat, non-distended. : Reports burning with urination. EENT: No signs and/or symptoms were reported regarding the EENT system. Derm: No signs and/or symptoms reported regarding the dermatologic system. Musculoskeletal: No signs and/or symptoms reported regarding the musculoskeletal system. 16:28 Reassessment: Patient appears in no apparent distress at this time. No changes from ld1 previously documented assessment. Patient and/or family updated on plan of care and expected duration. Pain level reassessed. Patient is alert, oriented x 3, equal unlabored respirations, skin warm/dry/pink. Vital Signs: 14:23 BP 120 / 79; Pulse 64; Resp 16 S; Temp 99.0(TE); Pulse Ox 100% on R/A; Weight 46.72 kg aa5 (R); Height 4 ft. 10 in. (147.32 cm) (R); 15:06 BP 116 / 74; Pulse 69; Resp 18; Pulse Ox 100% on R/A; ld1 16:28 BP 121 / 78; Pulse 71; Resp 18; Pulse Ox 100% on R/A; ld1 14:23 Body Mass Index 21.53 (46.72 kg, 147.32 cm) aa5 ED Course: 14:21 Patient arrived in ED. mr 14:23 Claudia Martin, HEATHER is [facility]. kb 14:23 Moreno Carson MD is Attending Physician. kb 14:23 Arm band placed on. aa5 14:24 Triage completed. aa5 14:35 Cheri Pratt, ARTUR is Primary Nurse. ld1 14:49 Urine Microscopic Only Sent. ld1 15:06 Patient has correct armband on for positive identification. Call light in reach. Side ld1 rails up X2. Pulse ox on. NIBP on. Door closed. Noise minimized. Warm blanket given. 15:06 No provider procedures requiring assistance completed. ld1 16:28 Patient did not have IV access during this emergency room visit. ld1 Administered Medications: No medications were administered Medication: 15:06 VIS not applicable for this client. ld1 Outcome: 15:42 Discharge ordered by . kb 16:28 Discharged to home ambulatory. ld1 16:28 Condition: stable 16:28 Discharge instructions given to patient, Instructed on discharge instructions, follow up and referral plans. medication usage, Demonstrated understanding of instructions, follow-up care, medications, Prescriptions given X 1. 16:29 Patient left the ED. ld1 Signatures: Claudia Martin, HEATHER PALMP-Farnaz Martinez mr Berta Wills, RN RN aa5 Cheri Pratt RN RN ld1
[2022-11-25 16:32] LABS: Urine Specific Gravity/Preg 1.015 (1.005-1.030)
[2022-11-25 16:34] VITALS: TEMP 99; O2SAT 100
[2022-11-25 16:36] VITALS: BP 121/78
== END 2022-11-25 16:29 | disposition home or self-care (01) ==
LOC: ER 14:17
DX: N39.0 Urinary tract infection, site not specified (principal)
CPT/HCPCS: 81003; 81015; 81025; 99283

== ENCOUNTER 2022-12-02 14:12 | Emergency (ER) | payer BC ==
--- OUTSIDE RECORDS SUMMARY | 2022-12-02 14:15 | XMS REPORT | Continuity of Care Document ---
:1995 Author Organization [facility] t Address [address] [facility] [address] [place] [address] Care Team Providers Name Role Phone Newton Dumont MD Attending Clinician Doctor Unassigned, [place] Attending Clinician Unavailable Tolu David DO Attending Clinician TOLU DAVID Attending Clinician Unavailable Tonya Barfield Attending Clinician Payers Payer Name Policy Type Policy Number Effective Date Expiration Date S [facility] [place] PENDING PENDING 2020 00:00:00 [facility] [id number] 2019 00:00:00 Problems This patient has no known problems. Allergies, Adverse Reactions, Alerts Allergy Allergy Status Severity Reaction(s) Onset Inactive Treating Comm ents Source Name Type Date Date Clinician NO KNOWN Drug Active Univers ALLERGIE Class ity of [facility] Medications This patient has no known medications. Procedures This patient has no known procedures. Encounters Start End Encounter Admission Attending Care Care Encounter Source Date/Time Date/Time Type Type Clinicians Facility Department ID 2021-10-21 [facility] [id number] Common 12:23:29 [id number] [facility] 2020-09-24 2020-09-24 Emergency Newton Dumont [place] [id number] 13:06:00 14:35:00 [place] [id number] [place] [id number] [place] [id number] 2020-09-24 2020-09-24 Emergency X [facility] ERT [id number] Univers 13:06:00 13:06:00 [facility] 2020-09-24 2020-09-24 Orders Doctor NYLA [id number] 00:00:00 00:00:00 Only Unassigned, [place] [id number] [place] [place] [facility] .[id number] [id number] 2020-08-12 2020-08-12 [facility] [id number] 10:59:00 12:09:00 Tolu [place] [id number] [place] [id number] [place] [id number] 2020-08-12 2020-08-12 [facility] [id number] Univers 10:59:00 10:59:00 TOLU [facility] 2020-08-02 2020-08-02 Emergency Tonya Troncoso [facility] [id number] 15:04:00 16:33:00 [place] [id number] [place] [id number] [place] [id number] 2020-08-02 2020-08-02 Emergency X [facility] ERT [id number] Univers 14:55:00 14:55:00 [facility] Results This patient has no known results.
[2022-12-02 14:59] LABS: Urine Bacteria None Seen /HPF (<20); Urine RBC <5 /HPF (None Seen)
[2022-12-02 15:47] VITALS: BP 120/84; TEMP 97; O2SAT 97
[2022-12-06 09:57] LABS: Urine Blood Trace-lysed (Negative); Urine Glucose Negative (Negative); Urine Protein Negative (Negative); Urine Specific Gravity <=1.005 (1.005-1.030); Urine pH 6.5 (5.0-7.0)
--- NOTE | 2022-12-17 15:23 | EDPHYS ---
Physician Documentation [facility] Name: Marion Alvarado Age: 27 yrs Sex: Female : 1995 Arrival Date: 12/02/2022 Time: 14:16 Bed DIS4 Private MD: ED Physician Moreno Carson HPI: 12/02 14:33 This 27 yrs old Female presents to ER via Ambulatory with complaints of Urinary Problem.pm1 14:33 The patient presents with urinary symptoms, frequency, Pressure over bladder. Onset: pm1 The symptoms/episode began/occurred 1 week(s) ago. Modifying factors: The symptoms are alleviated by nothing, the symptoms are aggravated by urinating. Associated signs and symptoms: Pertinent negatives: fever, nausea, vaginal discharge, vomiting, Itching. Severity of symptoms: in the emergency department the symptoms are unchanged. The patient has experienced similar episodes in the past, Patient with history of chronic urinary tract infections. The patient has not recently seen a physician. 27-year-old female presenting to the ER with complaints of urinary frequency and pressure over her bladder. Symptoms have been ongoing for about 1 week. Patient was seen in the ER on 11/25/2022 and prescribed cefpodoxime for her UTI. Patient reports her symptoms of dysuria have not improved. Patient reports usually that Macrobid and cefpodoxime do not work for her, but Bactrim does work. Historical: - Allergies: 14:21 No Known Allergies; hb - PMHx: 14:21 UTI; hb ROS: 14:33 Positive for urinary frequency, Negative for burning with urination, vaginal pm1 discharge, vaginal itching. 14:33 Constitutional: Negative for fever, chills, and weight loss, Cardiovascular: Negative for chest pain, palpitations, and edema, Respiratory: Negative for shortness of breath, cough, wheezing, and pleuritic chest pain, Abdomen/GI: Negative for abdominal pain, nausea, vomiting, diarrhea, and constipation, Back: Negative for injury and pain, MS/Extremity: Negative for injury and deformity, Skin: Negative for injury, rash, and discoloration, Neuro: Negative for headache, weakness, numbness, tingling, and seizure. 14:33 All other systems are negative. Exam: 14:33 Constitutional: This is a well developed, well nourished patient who is awake, alert, pm1 and in no acute distress. Head/Face: Normocephalic, atraumatic. 14:33 Skin: Warm, dry with normal turgor. Normal color with no rashes, no lesions, and no evidence of cellulitis. MS/ Extremity: Pulses equal, no cyanosis. Neurovascular intact. Full, normal range of motion. 14:33 Cardiovascular: Exam negative for acute changes, Rate: normal, Rhythm: regular, Pulses: no pulse deficits are appreciated. 14:33 Respiratory: Exam negative for acute changes, respiratory distress, shortness of breath. 14:33 Abdomen/GI: Exam negative for acute changes. 14:33 Neuro: Exam negative for acute changes, Orientation: is normal, Mentation: is normal, Gait: is steady, at a normal pace, without difficulty. Vital Signs: 14:19 BP 120 / 84; Pulse 80; Resp 16; Temp 97; Pulse Ox 97% on R/A; Weight 46.72 kg; Height 4 hb ft. 10 in. ; Pain 6/10; 14:19 Body Mass Index 21.53 (46.72 kg, 147.32 cm) hb 14:19 Pain Scale: Adult hb MDM: 14:26 Patient medically screened. pm1 15:31 Data reviewed: vital signs. pm1 15:34 Counseling: I had a detailed discussion with the patient and/or guardian regarding: the pm1 historical points, exam findings, and any diagnostic results supporting the discharge/admit diagnosis, lab results, the need for outpatient follow up, a urologist, to return to the emergency department if symptoms worsen or persist or if there are any questions or concerns that arise at home. 15:34 ED course: Discussed micro and urine dip results with the patient. Essentially negative pm1 examination for UTI, but will get a culture due to patient's history of multiple UTIs. Patient reports feels like early UTI and she would like to be discharged home with Bactrim versus waiting for the culture results. Informed patient to follow-up on culture results and will prescribe Bactrim. 12/02 14:32 Order name: Urine Microscopic Only; Complete Time: 15:11 pm1 12/02 14:32 Order name: Urine Culture pm1 12/02 14:32 Order name: Urine Dipstick-Ancillary (obtain specimen); Complete Time: 14:41 pm1 12/02 14:32 Order name: Urine Test (obtain specimen); Complete Time: 14:41 pm1 Administered Medications: No medications were administered Disposition: 15:53 Co-signature as Attending Physician, Moreno Carson MD I reviewed the patient's care rn provided by the Advanced Practice Provider and agree with the diagnosis and treatment plan. Disposition Summary: 12/02/22 15:36 Discharge Ordered Location: Home pm1 Problem: new pm1 Symptoms: have improved pm1 Condition: Stable pm1 Diagnosis - Dysuria pm1 Followup: pm1 - With: Emergency Department - When: As needed - Reason: Worsening of condition Followup: pm1 - With: Private Physician - When: 2 - 3 days - Reason: Recheck today's complaints, Continuance of care, Re-evaluation by your physician Discharge Instructions: - Discharge Summary Sheet pm1 - Dysuria pm1 Forms: - Medication Reconciliation Form pm1 - Thank You Letter pm1 - Antibiotic Education pm1 - Prescription Opioid Use pm1 Prescriptions: - Bactrim DS 800-160 mg Oral Tablet - take 1 tablet by ORAL route every 12 hours for 10 days; 20 tablet; Refills: 0, pm1 Product Selection Permitted Signatures: Dispatcher [employer] EDMoreno Thomson MD MD rn Marinas, Patrick, NP RISK CONTROL ANALYST pm1 Susan Walsh, RN RN
--- NOTE | 2022-12-17 15:23 | ER ---
Nurse's Notes [facility] Name: Marion Alvarado Age: 27 yrs Sex: Female : 1995 Arrival Date: 12/02/2022 Time: 14:16 Bed DIS4 Private MD: Diagnosis: Dysuria Presentation: 12/02 14:19 Chief complaint: Seen in ED 1 week ago for UTI, on cefpodoxime, reports burning with hb urination is unchanged from previous visit. Coronavirus screen: At this time, the client does not indicate any symptoms associated with coronavirus-19. Ebola Screen: No symptoms or risks identified at this time. Initial Sepsis Screen: Does the patient meet any 2 criteria? No. Patient's initial sepsis screen is negative. Does the patient have a suspected source of infection? No. Patient's initial sepsis screen is negative. Risk Assessment: Do you want to hurt yourself or someone else? Patient reports no desire to harm self or others. Onset of symptoms was November 22, 2022. 14:19 Method Of Arrival: Ambulatory hb 14:19 Acuity: SHAW 4 hb Historical: - Allergies: 14:21 No Known Allergies; hb - PMHx: 14:21 UTI; hb Screenin:40 [facility] ED Fall Risk Assessment (Adult) History of falling in the last 3 months, ss including since admission No falls in past 3 months (0 pts). Abuse screen: Denies threats or abuse. Denies injuries from another. Nutritional screening: No deficits noted. Tuberculosis screening: Never had TB. Assessment: 15:40 General: Appears in no apparent distress. comfortable, Behavior is calm, cooperative. ss Neuro: Level of Consciousness is awake, alert, obeys commands. Respiratory: Airway is patent Respiratory effort is even, unlabored. Derm: Skin is intact, is healthy with good turgor, Skin is pink, warm \T\ dry. normal. Vital Signs: 14:19 BP 120 / 84; Pulse 80; Resp 16; Temp 97; Pulse Ox 97% on R/A; Weight 46.72 kg; Height 4 hb ft. 10 in. ; Pain 6/10; 14:19 Body Mass Index 21.53 (46.72 kg, 147.32 cm) hb 14:19 Pain Scale: Adult hb ED Course: 14:16 Patient arrived in ED. am2 14:21 Triage completed. hb 14:21 Arm band placed on. hb 14:26 Onel Ruvalcaba, BETH is PHCP. pm1 14:26 Moreno Carson MD is Attending Physician. pm1 15:40 Cynthia Shah, ARTUR is Primary Nurse. ss 15:40 Patient has correct armband on for positive identification. ss 15:40 No provider procedures requiring assistance completed. Patient did not have IV access ss during this emergency room visit. Administered Medications: No medications were administered Medication: 15:40 VIS not applicable for this client. ss Outcome: 15:36 Discharge ordered by . pm1 15:40 Discharged to home ambulatory. ss 15:40 Condition: good 15:40 Discharge instructions given to patient, Instructed on discharge instructions, follow up and referral plans. medication usage, Demonstrated understanding of instructions, follow-up care, medications, Prescriptions given X 1. 15:42 Patient left the ED. ss Signatures: Cynthia Shah RN RN Onel Ruvalcaba, BETH RIB MATCHER AND FITTER pm1 Susan Walsh RN RN Emily Hanley am2 Corrections: (The following items were deleted from the chart) 15:41 15:40 Discharge instructions given to patient, family, Instructed on discharge ss instructions, follow up and referral plans. medication usage, Demonstrated understanding of instructions, follow-up care, medications, Prescriptions given X 1, ss
== END 2022-12-02 15:42 | disposition home or self-care (01) ==
LOC: ER 14:12
DX: R30.0 Dysuria (principal)
CPT/HCPCS: 81003; 81015; 87086; 87088; 99282

== ENCOUNTER 2024-10-19 15:02 | Emergency (ER) | payer BC ==
--- OUTSIDE RECORDS SUMMARY | 2024-10-19 15:05 | XMS REPORT | Continuity of Care Document ---
Author Name Unknown Address [address] [place] [address] [facility] thconnect Address [address] [place] [address] Care Team Providers Care [employer] Equipment Operator Name Role Phone Dheeraj CAMPOS, Sandra Primary Care Physician [phone] Newton Dumont MD Attending Clinician Doctor Unassigned, [place] Attending Clinician U Tolu Murray DO Attending Clinician TOLU DAVID Attending Clinician Unavailable Tonya Barfield Attending Clinician [phone] Payers Payer Name Policy Type Policy Number Effective Date Expirati on Date Source MEDICAID PENDING PENDING 2020 00:00:00 [facility] [id number] 2019 00:00:00 Allergies, Adverse Reactions, Alerts Allergy Name Allergy Type Status Severity Reaction(s) Onset Date Inactive Date Treating Clinician Comments Source NO KNOWN ALLERGIE S Drug Class Active [facility] Medications Ordered Medication Name Filled Medication Name Start Date Stop Date Current Medication? Ordering Clinician Indication Dosage Frequency Signature (SIG) Comments Components Source meloxicam 15 mg tablet 06-19 00:00: 00 Yes 1mg Jarad Henderson cyclobenzap rine 10 mg tablet 06-19 00:00: 00 Yes 1mg Jarad Henderson Vital Signs Vital Name Observation Time Observation Value Comments S reba BP Systolic 2024-06-19 14:40:00 90 mm[Hg] Lorenzo Henderson BP Diastolic 2024-06-19 14:40:00 60 mm[Hg] Leonid Henderson Weight Measured 2024-06-19 14:40:00 116.00 pounds Jarad Henderson Height Measured 2024-06-19 14:40:00 Jarad Henderson Body Temperature 2024-06-19 14:40:00 97.20 degrees Jarad Henderson Heart Rate 2024-06-19 14:40:00 76.00 /min Shreya Henderson Respiratory Rate 2024-06-19 14:40:00 Jarad Henderson Encounters Start Date/Time End Date/Time Encounter Type Admission Type Attending [facility] Care Department Encounter ID Source 2021-10-21 12:23:29 Outpatient [facility] [id number] [facility] 2024-06-19 14:27:57 2024-06-19 14:27:57 Outpatient [facility] [id number] Jarad Henderson 2024-06-19 00:00:00 2024-06-19 00:00:00 Outpatient Visit [facility] [id number] Jarad Henderson 2020-09-24 13:06:00 2020-09-24 14:35:00 Emergency Newton Dumont [facility] 1..114 [id number] 2020-09-24 13:06:00 2020-09-24 13:06:00 Emergency [facility] [id number] [facility] 2020-09-24 00:00:00 2020-09-24 00:00:00 Orders Only Doctor Unassigned, [place] [facility] 1..114 [id number] 2020-08-12 10:59:00 2020-08-12 12:09:00 Emergency Tolu David [facility] [id number] [id number] 2020-08-12 10:59:00 2020-08-12 10:59:00 Emergency X DAVIDTOLU [facility] [id number] [facility] 2020-08-02 15:04:00 2020-08-02 16:33:00 Emergency AbaTonya contreras [facility] [id number] 2020-08-02 14:55:00 2020-08-02 14:55:00 Emergency [facility] [id number] [facility]
[2024-10-19 16:02] LABS: Specific Gravity < 1.005 (1.005-1.030); Sqamous Epithelial None Seen /HPF (None Seen); Urine Bacteria None Seen /HPF (<20); Urine Bilirubin NEGATIVE (Negative); Urine Blood Negative (Negative); Urine Clarity Turbid (Clear); Urine Color Yellow (Yellow); Urine Crystals Unidentified Few /HPF (None Seen); Urine Culture Reflex Order NOT NEEDED; Urine Glucose NEGATIVE (Negative); Urine Ketones NEGATIVE (Negative); Urine Microscopic Reflex YN ORDER UMIC; Urine Nitrite NEGATIVE (Negative); Urine Protein NEGATIVE (Negative); Urine RBC <5 /HPF (None Seen); Urine Urobilinogen Normal (Normal); Urine WBC <5 /HPF (<5); Urine pH 6.5 (5.0-7.0)
--- NOTE | 2024-10-19 16:31 | EDPHYS ---
Physician Documentation [facility] Name: Marion Alvarado Age: 29 yrs Sex: Female : 1995 Arrival Date: 10/19/2024 Time: 15:02 Bed IW1 Private MD: ED Physician Sukhjinder Cevallos HPI: 10/19 16:10 This 29 yrs old Female presents to ER via Ambulatory with complaints of Urinary Problem.kb 16:10 Pt is a 29 year old female who presents for dysuria, frequency and urgency for 2 weeks. kb States she has been on bactrim for 12 days and cefdinir for a week with no relief. Denies abd pain, flank pain, n/v, fever. 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 - Infectious Disease History:: Denies. - Social history:: Smoking status: Patient denies any tobacco usage or history of. ROS: 16:10 Constitutional: As per HPI kb Exam: 16:10 Constitutional: This is a well developed, well nourished patient who is awake, alert, kb and in no acute distress. Head/Face: Normocephalic, atraumatic. ENT: Moist Mucous membranes Cardiovascular: Regular rate Respiratory: Respirations even and unlabored. No increased work of breathing. Talking in full sentences Abdomen/GI: Soft, non-tender. No distention Back: No spinal tenderness. No costovertebral tenderness. Full range of motion. Skin: Warm, dry with normal turgor. Normal color. MS/ Extremity: Pulses equal, no cyanosis. Neurovascular intact. Full, normal range of motion. Neuro: Awake and alert, GCS 15, oriented to person, place, time, and situation. Vital Signs: 15:09 BP 159 / 117; Pulse 111; Resp 16; Temp 98.3(TE); Pulse Ox 100% on R/A; Weight 47.63 kg; hb Height 4 ft. 10 in. ; Pain 4/10; 15:09 Body Mass Index 21.94 (47.63 kg, 147.32 cm) hb 15:09 Pain Scale: Adult hb MDM: 15:07 Medical Screening Exam initiated bo1 16:30 Data reviewed: vital signs, nurses notes. kb 16:30 Differential diagnosis: UTI, kidney stone. Test considered but Not performed: CT: ct kb considered but pt is afebrile with no abd or CVA pain or tenderness. Counseling: I had a detailed discussion with the patient and/or guardian regarding the historical points, exam findings, and any diagnostic results supporting the discharge/admit diagnosis, lab results, the need for outpatient follow up, a family practitioner, a urologist, to return to the emergency department if symptoms worsen or persist or if there are any questions or concerns that arise at home. ED course: Pt has appt with urologist scheduled. 10/19 15:10 Order name: Test, Urine; Complete Time: 16:03 kb 10/19 15:10 Order name: Urinalysis w/ reflexes; Complete Time: 16:02 kb Administered Medications: No medications were administered Disposition Summary: 10/19/24 16:31 Discharge Ordered Notes: Location: Home kb Condition: Stable kb Diagnosis - Dysuria kb Followup: kb - With: Emergency Department - When: As needed - Reason: Worsening of condition Followup: kb - With: Private Physician - When: 2 - 3 days - Reason: Recheck today's complaints, Continuance of care, Re-evaluation by your physician Discharge Instructions: - Discharge Summary Sheet kb - Dysuria kb Forms: - Medication Reconciliation Form kb - Antibiotic Education kb - Prescription Opioid Use kb - Patient Portal Instructions kb - Leadership Thank You Letter kb Signatures: Dispatcher [employer] Claudia Glass FNP-C FNP-Susan Mckinney, RN RN [facility], MD ANA Slaughter bo1
--- NOTE | 2024-10-19 16:31 | ER ---
Nurse's Notes [facility] Name: Marion Alvarado Age: 29 yrs Sex: Female : 1995 Arrival Date: 10/19/2024 Time: 15:02 Bed IW1 Private MD: Diagnosis: Dysuria Presentation: 10/19 15:09 Chief complaint: Pain with urination x 2 weeks, on Bactrim day 12 for UTI. Coronavirus hb screen: At this time, the client does not indicate any symptoms associated with coronavirus-19. Ebola Screen: No symptoms or risks identified at this time. Initial Sepsis Screen: Does the patient meet any 2 criteria? No. Patient's initial sepsis screen is negative. Does the patient have a suspected source of infection? No. Patient's initial sepsis screen is negative. Risk Assessment: Do you want to hurt yourself or someone else? Patient reports no desire to harm self or others. Onset of symptoms was October 05, 2024. 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 - Infectious Disease History:: Denies. - Social history:: Smoking status: Patient denies any tobacco usage or history of. Screenin:49 [facility] ED Fall Risk Assessment (Adult) History of falling in the last 3 months, ap3 including since admission No falls in past 3 months (0 pts) Confusion or Disorientation No (0 pts) Intoxicated or Sedated No (0 pts) Impaired Gait No (0 pts) Mobility Assist Device Used No (0 pt) Altered Elimination No (0 pt) Score/Fall Risk Level 0 - 2 = Low Risk Oriented to surroundings, Maintained a safe environment, Educated pt \T\ family on fall prevention, incl call for assistance when getting out of bed, Assessed \T\ reinforced patient's understanding of fall precautions, Hourly rounding (assess needs \T\ fall precautionary measures) done, Used ambulatory aids as needed (educated on \T\ assisted with), Used gait belt as appropriate. Abuse screen: Denies threats or abuse. Nutritional screening: No deficits noted. Tuberculosis screening: No symptoms or risk factors identified. Assessment: 16:49 General: Appears in no apparent distress. Behavior is calm, cooperative, appropriate ap3 for age. Pain:. Neuro: Level of Consciousness is awake, alert, obeys commands, Oriented to person, place, time, situation, Appropriate for age. Cardiovascular: Patient's skin is warm and dry. Respiratory: Airway is patent Respiratory effort is even, unlabored, Respiratory pattern is regular, symmetrical. Vital Signs: 15:09 BP 159 / 117; Pulse 111; Resp 16; Temp 98.3(TE); Pulse Ox 100% on R/A; Weight 47.63 kg; hb Height 4 ft. 10 in. ; Pain 4/10; 15:09 Body Mass Index 21.94 (47.63 kg, 147.32 cm) hb 15:09 Pain Scale: Adult hb ED Course: 15:04 Patient arrived in ED. im 15:07 Sukhjinder Cevallos MD is Attending Physician. bo1 15:07 [facility]C [facility] kb 15:11 Triage completed. hb 15:11 Arm band placed on. hb 15:53 Urine collected: clean catch specimen. ap3 16:50 Patient has correct armband on for positive identification. ap3 16:50 Provided Education on: wait for provider . ap3 16:50 No provider procedures requiring assistance completed. Patient did not have IV access ap3 during this emergency room visit. Administered Medications: No medications were administered Medication: 16:50 VIS not applicable for this client. ap3 Outcome: 16:31 Discharge ordered by . kb 16:50 Discharged to home ambulatory, ap3 16:50 Condition: good 16:50 Discharge instructions given to patient, by provider. patient left prior to nurse discharge. Instructed on discharge instructions, follow up and referral plans. 16:51 Patient left the ED. ap3 Signatures: Claudia Martin FNP-C FNP-Ckb Baxter, Heather, RN RN Emily Valadez RN RN ap3 Allison Mckenna Sukhjinder Cevallos MD MD bo1
[2024-10-19 18:51] VITALS: BP 159/117; TEMP 98.3; O2SAT 100
== END 2024-10-19 16:51 | disposition home or self-care (01) ==
LOC: ER 15:02
DX: R30.0 Dysuria (principal)
CPT/HCPCS: 81001; 81025; 99283